=== PATIENT | male | born 1940 | race Caucasian/White ===

== ENCOUNTER 2016-11-25 19:01 | Observation (INO) ==
--- NOTE | 2016-11-25 19:41 | Emergency Department Note ---
Disposition Clinical Impression: Inability to ambulate due to knee, Strain of left knee Disposition: Admitted As Inpatient Condition: Good Referrals: NONE,PCP [Primary Care Provider] - Forms: ED Satisfaction Letter Time of Disposition: 19:58 Extremity Problem HPI - General Chief complaint: ED Extremity Problem,Nontraumatic Stated complaint: Left knee pain Time Seen by Provider: 11/25/16 19:26 Source: patient, family Limitations: no limitations Nursing Notes Reviewed: Yes Vital Signs Reviewed: Yes - History of Present Illness HPI Narrative: 76-year-old male presents emergency room for left knee pain. Patient states he was getting up out of the recliner today and had severe pain noted in the left knee. He denies any fall or direct trauma. No fevers or chills. No new swelling. States it was fine earlier today. He has a history of chronic right knee pain. He states he wanted to have surgery on the right knee but was unintended unable to due to his other medical problems. His left leg was his good leg which helped some transfer his weight from the bed to his motorized wheelchair at home. He he uses his wheelchair to get around the house. He states he uses his left leg dependent but now is unable to do so due to the pain and weakness of the left knee. He is unable to take care of himself and his is unable to hold him up due to his weight. Pain Scale: 0 - Related Data Allergies Allergy/AdvReac Type Severity Reaction Status Date / Time No Known Allergies Allergy Verified 11/25/16 19:13 Review of Systems: Gen.: No fevers or chills or new weakness Eyes: Denies double vision or any vision changes Ears: Denies any otalgia Pharynx: Denies sore throat CV: Denies chest pain. Denies palpitations Respiratory: Denies any cough or sputum production. No shortness of breath. GI: Denies any nausea, vomiting, diarrhea, constipation. Denies abdominal pain Neuro: Denies any headache. No problems with ambulation. No numbness. Skin: Denies any rashes or abrasions Psych: Denies any depression or suicidal or homicidal ideation Musculoskeletal: Denies any arthralgias or myalgias Past Medical History - Past Medical History Medical history: Reports: CHF, DVT, diabetes, hyperlipidemia, hypertension, kidney stones - Social History Smoking Status: Never smoker Alcohol use: Reports: none Drug use: Reports: none Physical Exam - General Limitations: no limitations, other (Obese male) General appearance: in no apparent distress - Head Head exam: atraumatic, normocephalic - ENT ENT exam: normal exam - Neck Neck exam: Present: normal inspection - Chest Chest inspection: Present: normal inspection - Respiratory Respiratory exam: Present: normal lung sounds bilaterally - Cardiovascular Cardiovascular exam: Present: regular rate, normal rhythm - Abdominal Exam Abdominal exam: Present: soft, Non-Tender, normal bowel sounds - Expanded Lower Extremity Exam Knee exam: Present: tenderness (Patient has diffuse tenderness of the left knee. No significant swelling as compared to the right. No redness. No bruising. No ecchymosis. Pain on passive range of motion of the left knee. Intact patellar and quadriceps tendon.) - Back Exam Back exam: Present: normal inspection - Neurological Exam Neurological exam: Present: alert, oriented X3 - Psychiatric Psychiatric exam: Present: normal affect, normal mood - Skin Skin exam: Present: warm, dry, intact Course Course Narrative: Knee films of the left knee show [id number] with significant degenerative joint disease. We will check some screening labs. Patient will need to be admitted due to the inability to pivots or bear weight on the left leg. Consult orthopedics tomorrow. Vital Signs Temperature 97.8 F 11/25/16 19:11 Pulse Rate 68 11/25/16 19:11 Respiratory Rate 20 11/25/16 19:11 Blood Pressure 148/89 11/25/16 19:11 O2 Sat by Pulse Oximetry 95 11/25/16 19:11 Temperature 97.8 F 11/25/16 19:17 Pulse Rate 68 11/25/16 19:17 Respiratory Rate 20 11/25/16 19:17 Blood Pressure 148/89 11/25/16 19:17 O2 Sat by Pulse Oximetry 95 11/25/16 19:17 Oxygen Delivery Oxygen Delivery Room Air Extremity Problem, Nontraumati - Medical Records Medical records reviewed: Yes I reviewed the patient's medical records. - Radiology Data Radiology results reviewed: Yes I reviewed the patient's radiology results.
[2016-11-25 19:58] LABS: Basophils % 0.4 %; Eosinophils # 1.6 K/mcL (0.0-0.6); Eosinophils % 14.9 %; Hematocrit 38.6 % (37.5-50.1); Hemoglobin 12.7 g/dL (12.9-16.9); Immature Granulocytes % 0.5 % (0-4); Lymphocytes # 2.5 K/mcL (0.6-4.6); Lymphocytes % 23.7 %; Mean Corpuscular HGB Conc 32.9 g/dL (31.6-35.5); Mean Corpuscular Hemoglobin 30.5 pg (28.0-33.3); Mean Corpuscular Volume 92.6 fL (83.0-100.0); Mean Platelet Volume 11.8 fL (9.4-12.4); Monocytes # 0.9 K/mcL (0.0-1.3); Monocytes % 8.4 %; Neutrophils # 5.5 K/mcL (1.6-8.9); Platelet Count 140 K/mcL (140-400); Red Blood Count 4.17 M/mcL (4.19-5.50); Red Cell Distribution Width 14.6 % (11.5-14.5); Segmented Neutrophils % 52.1 %
[2016-11-25 20:11] LABS: BUN/Creatinine Ratio 21 (6-26); Blood Urea Nitrogen 24 mg/dL (8-26); Calcium 9.4 mg/dL (8.6-10.8); Carbon Dioxide 30 mEq/L (19-29); Chloride 102 mEq/L (98-109); Glucose 113 mg/dL (70-99); Osmolality,Calculated 295 (280-300); Potassium 4.4 mEq/L (3.5-4.5); Sodium 140 mEq/L (136-145); eGFR For African Americans > 60 (> 60); eGFR For Non-African Americans > 60 (> 60)
[2016-11-25] MEDS ORDERED: *HR* Morphine 2 MG/ML SYRINGE IVP PRN (20:58)
[2016-11-25] MEDS ORDERED: Naloxone 0.4 MG/ML INJ IVP PRN (20:58)
[2016-11-25] MEDS ORDERED: Ondansetron 4 MG/2 ML VIAL IVP PRN (20:58)
[2016-11-25] MEDS ORDERED: Fluticasone Propionate Nasal 50 MCG/SPRAY BOTTLE NS PRN (21:03)
[2016-11-25] MEDS ORDERED: *HR* Dextrose 50 % in Water (Syg) 50 ML SYRINGE IVP PRN (21:08)
[2016-11-25] MEDS ORDERED: Dextrose Gel 15 GM PO PRN ×2 (21:08)
[2016-11-25] MEDS ORDERED: D5% in Water 1,000 ML IVC PRN (21:08)
--- NOTE | 2016-11-25 21:18 | Internal Med History&Physical ---
<Willian Catherine - Last Filed: 11/25/16 21:56> Date of Encounter: 11/25/16 Time of Encounter: 20:15 Assessment and Plan (1) Inability to ambulate due to multiple joints Current visit: Yes Status: Acute Patient presents with current functional paraplegia related to inability to ambulate due to bilateral knee degenerative changes. 2-View XR of the left knee today shows severe degenerative changes about the medial compartment and patellofemoral space with marginal osteophytes. Moderate degeneration lateral compartment. No fracture or effusion. IVP morphine ordered 2 mg Q4. Orthopedic surgery consult ordered to assess patient for surgical candidacy and/or local injections. Patient to be placed as falls precautions/up with assist/bed rest with bedside commode with assist only due to inability to ambulate. PT and OT consults ordered to assess patient's functional status. SW consult ordered to assess for possible post-discharge placement for rehabilitation services. (2) Acute pain of both knees Current visit: Yes Status: Acute Patient presents with acute on chronic bilateral knee pain related to severe degenerative changes. IVP morphine ordered 2 mg Q4. Orthopedic surgery consult ordered to assess patient for surgical candidacy and/or local injections. Patient to be placed as falls precautions/up with assist/bed rest with bedside commode with assist only due to inability to ambulate. PT and OT consults ordered to assess patient's functional status. SW consult ordered to assess for possible post-discharge placement for rehabilitation services. (3) CHF (congestive heart failure) Current visit: Yes Status: Chronic Patient presents with chronic CHF. Patient currently has mild bilateral pitting edema of 1+ but lungs are clear. Patient denies SOB or orthopnea. Will continue patient's hydrochlorothiazide PO and place patient on supplemental O2 with SpO2 monitoring. Diabetic diet with fluid restriction diet of 1.5L daily. Patient placed on continuous telemetry. Will monitor patient for signs of respiratory and/or cardiac distress. Qualifiers: Congestive heart failure type: unspecified congestive heart failure type Congestive heart failure chronicity: chronic Qualified Code(s): I50.9 - Heart failure, unspecified (4) Diabetes Current visit: Yes Status: Chronic Patient presents with history of chronic diabetes controlled with Lantus and oral metformin. Will hold patient's metformin and continue patient's Lantus 70 units HS and add low-dose correction insulin with hypoglycemia protocol. A1c ordered with a.m.labs. Blood glucose checks ACHS. Qualifiers: Diabetes mellitus type: type 2 Diabetes mellitus complication status: without complication Diabetes mellitus terminal gauger insulin use: with terminal gauger use Qualified Code(s): E11.9 - Type 2 diabetes mellitus without complications ; Z79.4 - rat exterminator (current) use of insulin (5) HLD (hyperlipidemia) Current visit: Yes Status: Chronic Patient presents with history of chronic hyperlipidemia. Lipid panel ordered and will continue patient's simvastatin. Qualifiers: Hyperlipidemia type: pure hypercholesterolemia Qualified Code(s): E78.00 - Pure hypercholesterolemia, unspecified; E78.0 - Pure hypercholesterolemia (6) HTN (hypertension) Current visit: Yes Status: Chronic Patient presents with history of chronic hypertension. Will monitor patient vital signs and continue patient's Norvasc, Cozaar, and metoprolol. Qualifiers: Hypertension type: essential hypertension Qualified Code(s): I10 - Essential (primary) hypertension (7) DVT prophylaxis Current visit: Yes Status: Acute Patient is to be placed on DVT prophylaxis due to current admission protocol and bed rest status. Patient is currently anticoagulated with Coumadin so will continue with pharmacy dosing. Internal Medicine - H&P: HPI Chief complaint: LE Weakness/Pain and Unable to Ambulate Admitted From: Emergency Dept Plans for Post Hospital Care: Home History of present illness: Mr. Ocampo is a 76 year old male presents to ED with chief complaint of left knee pain and inability to ambulate. Patient has history of chronic right knee pain and relies on left knee. In order to get on his wheelchair. Patient attempted to get out of his recliner today and experienced severe left knee pain. Denies any fall or trauma. Patient is unable to ambulate at the present time and his is unable to support his weight to assist him. Patient's current BMI is 47.3 and he is unable to support his weight. Patient experiences pain with passive ROM of left knee. Mr. Ocampo has a medical history that includes congestive heart failure, PE years ago, diabetes controlled with Lantus and metformin, hyperlipidemia, hypertension, and kidney stones. Patient reports he has never smoked. Patient states his diabetes is under control and reports his blood glucose checks range between 80-95. He states he is currently compliant with all of his medications. Mr. Ocampo is experiencing functional paraplegia based on his current inability to walk or support his weight and he is at moderate risk for further morbidity and will be placed as inpatient status with consults to orthopedic surgery to assess patient for surgical candidacy and/or local injections. PT, OT, and SW consults ordered to assess patient's functional status and recommend possible placement for rehabilitation service post-discharge. Falls/safety precautions ordered. Due to patient's current CHF and pedal edema, he will be placed on supplemental O2 and SpO2 monitoring, cardiac telemetry, and we will continue his hydrochlorothiazide PO. IV morphine for pain management. Time spent with patient and family > 40 minutes. Past Med Surg Social Fam HX - Past Medical History Medical history: CHF, DVT, diabetes, hyperlipidemia, hypertension, kidney stones - Social History Smoking Status: Never smoker Alcohol use: none Drug use: none Internal Medicine - H&P: Meds Aspirin Enteric Coated [Aspirin EC] 81 mg PO DAILY 11/25/16 [History] BuPROPion SR (12 HR) [Wellbutrin SR] 150 mg PO DAILY 11/25/16 [History] Calcium Carbonate/Vitamin D3 [Calcium 500-Vit D3 200 Tablet] 1 each PO BID 11/25 [History] Docusate [Colace] 100 mg PO BID 11/25/16 [History] Fluticasone Propionate Nasal [Flonase] 50 mcg NS DAILY PRN 11/25/16 [History] Gabapentin [Neurontin] 100 mg PO TID 11/25/16 [History] Insulin Glargine [Lantus] 70 unit SQ HS 11/25/16 [History] Losartan Potassium [Cozaar] 100 mg PO DAILY 11/25/16 [History] Metformin HCl [Glucophage] 1,000 mg PO DAILY 11/25/16 [History] Metoprolol XL (24 HR) Succ [Toprol XL] 25 mg PO DAILY 11/25/16 [History] Multivit-Min/FA/Lycopen/Lutein [Centrum Silver Tablet] 1 each PO DAILY 11/25/16 [History] Omeprazole [PriLOSEC] 20 mg PO Q48H 11/25/16 [History] Simvastatin [Zocor] 20 mg PO HS 11/25/16 [History] Trospium Chloride 20 mg PO HS 11/25/16 [History] Warfarin [Coumadin] 7.5 mg PO SUTUWEFRSA 11/25/16 [History] Warfarin [Coumadin] 10 mg PO MOTH 11/25/16 [History] amLODIPine [Norvasc] 5 mg PO DAILY 11/25/16 [History] hydroCHLOROthiazide [Hydrochlorothiazide] 25 mg PO DAILY 11/25/16 [History] Allergies No Known Allergies Allergy (Verified 11/25/16 19:13) All Systems PM: A 10-system review of systems was performed and is negative for pertinent findings except as documented above in the HPI. - Constitutional Vitals: Temp Pulse Resp BP Pulse Ox 97.8 F 68 0 0/0 95 11/25/16 19:17 11/25/16 19:17 11/25/16 20:16 11/25/16 20:16 11/25/16 19:17 Internal Med - H&P Results - Labs CBC & Chem 7: 11/25/16 19:52 11/25/16 19:52 <Juliana Morin - Last Filed: 11/25/16 22:01> Date of Encounter: 11/25/16 Internal Medicine - H&P: HPI History of present illness: Mr. Ocampo is a 76 year old male All Systems PM: A 10-system review of systems was performed and is negative for pertinent findings except as documented above in the HPI. - Constitutional Vitals: Temp Pulse Resp BP Pulse Ox 97.8 F 68 0 0/0 95 11/25/16 19:17 11/25/16 19:17 11/25/16 20:16 11/25/16 20:16 11/25/16 19:17 Internal Med - H&P Results - Labs CBC & Chem 7: 11/25/16 19:52 11/25/16 19:52 - Attending Attestation I have personally performed a face to face evaluation on this patient. I have reviewed and agree with the care plan. History and Exam by me shows: Martin Ocampo Mr. Ocampo is a patient with severe right knee osteoarthritis and at baseline uses a motorized wheelchair and relies on his left leg to prevent. Of note he is on Coumadin for history of VT E's, DVTs PEs. Suspect that he has been overcompensating his chronic right knee pain with increased increased stress to his left knee causing acute exacerbation of arthritic pain. He presents to the hospital for acute on chronic pain control and functional paraplegia unable to ambulate and self-care. In regards to his osteoarthritis he has been seen by orthopedics previously and is treated nonoperatively due to high risk for surgery is given comorbidities. ROS 14 point review of systems reviewed as best as possible given presentation. Pertinent positive or negative as per HPI or otherwise reviewed as negative General - AAO x 3. Morbid obesity Psych - Appropriate affect/speech. No agitation Eyes - BARBARA. Eye lids intact. No scleral icterus ENT - Oral mucosa pink, dentition intact. External ear clear/dry/intact. No thyromegaly Lymphatics - No cervical/inguinal lympadenopathy Neuro - No gross peripheral or central neuro deficits with intact CN 2-12 exam Heart - Sinus. RRR. S1 and S2 present. No added HS/murmurs appreciated. No elevated JVD appreciated. No calf swellings/erythema Lung - Adequate air entry b/l, No crackes/wheezes appreciated GI - Soft, non-tender. No hepatosplenomegaly/ascities. BS+ - No CVA/suprapubic tenderness or palpable bladder distension Skin - Intact. No rash/petechiae/ecchymosis. Warm extremities MSK -swelling in bilateral knee joint. No gross effusion noted Assessment and plan #1 functional paraplegia - Consult orthopedic Evaluation for possible local knee joint injection - PT evaluation for placement Chronic medical issues: Hypertension Depression DVTs on Coumadin Please type 2 insulin-dependent
[2016-11-25] MEDS ORDERED: *HR* Warfarin 7.5 MG TABLET PO ONE (21:45)
[2016-11-25 22:12] LABS: INR 1.5; Prothrombin Time 16.7 Seconds (9.4-12.1)
[2016-11-26] MEDS ORDERED: *HR* Heparin 5,000 UNIT/ML VIAL SQ SCH
[2016-11-26] MEDS ORDERED: Acetaminophen 325 MG TABLET PO PRN (01:40)
[2016-11-26 04:51] LABS: Basophils # 0.1 K/mcL (0.0-0.2); Basophils % 0.5 %; Eosinophils # 1.8 K/mcL (0.0-0.6); Eosinophils % 17.7 %; Hematocrit 37.8 % (37.5-50.1); Hemoglobin 12.3 g/dL (12.9-16.9); Immature Granulocytes % 0.6 % (0-4); Lymphocytes # 2.4 K/mcL (0.6-4.6); Lymphocytes % 23.5 %; Mean Corpuscular HGB Conc 32.5 g/dL (31.6-35.5); Mean Corpuscular Hemoglobin 30.2 pg (28.0-33.3); Mean Corpuscular Volume 92.9 fL (83.0-100.0); Monocytes # 0.8 K/mcL (0.0-1.3); Monocytes % 7.6 %; Platelet Count 140 K/mcL (140-400); Red Blood Count 4.07 M/mcL (4.19-5.50); Red Cell Distribution Width 14.5 % (11.5-14.5); Segmented Neutrophils % 50.1 %
[2016-11-26 05:19] LABS: BUN/Creatinine Ratio 21 (6-26); Blood Urea Nitrogen 24 mg/dL (8-26); Calcium 9.4 mg/dL (8.6-10.8); Carbon Dioxide 31 mEq/L (19-29); Chloride 102 mEq/L (98-109); Chol/HDL Ratio 3.4 (0-4.9); Cholesterol 102 mg/dL (< 200); Glucose 139 mg/dL (70-99); HDL Cholesterol 30 mg/dL (40-59); LDL Cholesterol,Calculated 49 mg/dL (0-99); Osmolality,Calculated 298 (280-300); Potassium 3.9 mEq/L (3.5-4.5); Sodium 141 mEq/L (136-145); Triglycerides 114 mg/dL (< 150); eGFR For African Americans > 60 (> 60); eGFR For Non-African Americans > 60 (> 60)
[2016-11-26 05:36] LABS: INR 1.6; Prothrombin Time 17.2 Seconds (9.4-12.1)
[2016-11-26 05:49] LABS: Hemoglobin A1C 6.5 %
[2016-11-26] MEDS ORDERED: Cholecalciferol (D-3) 1,000 UNIT TABLET PO SCH (09:00)
[2016-11-26] MEDS ORDERED: BuPROPion SR (12 HR) 150 MG TABLET PO SCH (09:00)
[2016-11-26] MEDS ORDERED: Aspirin Enteric Coated 81 MG Tablet PO SCH (09:00)
[2016-11-26] MEDS ORDERED: amLODIPine 5 MG TABLET PO SCH (09:00)
[2016-11-26] MEDS ORDERED: hydroCHLOROthiazide 25 MG TABLET PO SCH (09:00)
[2016-11-26] MEDS ORDERED: Metoprolol XL (24 HR) Succ 25 MG TAB.ER.24H PO SCH (09:00)
[2016-11-26] MEDS ORDERED: Pantoprazole 40 MG VIAL IVP SCH (09:00)
[2016-11-26] MEDS ORDERED: NON-FORMULARY MEDICATION 1 EACH EACH (Calcium Carbonate/Vitamin D3 [Calcium 500-Vit D3 200 PO SCH (09:00)
[2016-11-26] MEDS: Gabapentin 100 MG CAPSULE PO SCH ×2 (09:50→16:13)
[2016-11-26] MEDS: Insulin LISPRO 300 UNITS/3 ML VIAL SQ SCH ×2 (10:13→13:11)
[2016-11-26 11:52] VITALS: BP 137/76
--- NOTE | 2016-11-26 15:36 | Discharge Summary ---
Date of Encounter: 11/26/16 Time of Encounter: 15:31 - Discharge Diagnosis (1) Osteoarthritis Priority: Primary Status: Chronic Qualifiers: Osteoarthritis location: knee Osteoarthritis type: primary Laterality: bilateral Qualified Code(s): M17.0 - Bilateral primary osteoarthritis of knee (2) Strain of left knee Priority: Primary Status: Acute Qualifiers: Encounter type: initial encounter Qualified Code(s): S86.912A - Strain of unspecified muscle(s) and tendon(s) at lower leg level, left leg, initial encounter (3) VTE (venous thromboembolism) Priority: Secondary Status: Chronic (4) CHF (congestive heart failure) Priority: Secondary Status: Chronic Qualifiers: Congestive heart failure type: combined Congestive heart failure chronicity : chronic Qualified Code(s): I50.42 - Chronic combined systolic (congestive) and diastolic (congestive) heart failure (5) Diabetes Priority: Secondary Status: Chronic Qualifiers: Diabetes mellitus type: type 2 Diabetes mellitus complication status: with unspecified complications Diabetes mellitus long-term insulin use: with long-term use Qualified Code(s): E11.8 - Type 2 diabetes mellitus with unspecified complications; Z79.4 - manager terminal (current) use of insulin (6) HLD (hyperlipidemia) Priority: Secondary Status: Chronic Qualifiers: Hyperlipidemia type: unspecified Qualified Code(s): E78.5 - Hyperlipidemia , unspecified (7) HTN (hypertension) Priority: Secondary Status: Chronic Qualifiers: Hypertension type: essential hypertension Qualified Code(s): I10 - Essential (primary) hypertension - Discharge Medications Prescriptions: Ibuprofen 400 mg PO Q8H PRN #30 tablet PRN Reason: Pain>5 Home Medications: Aspirin Enteric Coated [Aspirin EC] 81 mg PO DAILY 11/25/16 [History] BuPROPion SR (12 HR) [Wellbutrin SR] 150 mg PO DAILY 11/25/16 [History] Calcium Carbonate/Vitamin D3 [Calcium 500-Vit D3 200 Tablet] 1 each PO BID 11/25 [History] Docusate [Colace] 100 mg PO BID 11/25/16 [History] Fluticasone Propionate Nasal [Flonase] 50 mcg NS DAILY PRN 11/25/16 [History] Gabapentin [Neurontin] 100 mg PO TID 11/25/16 [History] Insulin Glargine [Lantus] 70 unit SQ HS 11/25/16 [History] Losartan Potassium [Cozaar] 100 mg PO DAILY 11/25/16 [History] Metformin HCl [Glucophage] 1,000 mg PO DAILY 11/25/16 [History] Metoprolol XL (24 HR) Succ [Toprol Xl] 25 mg PO DAILY 11/25/16 [History] Multivit-Min/FA/Lycopen/Lutein [Centrum Silver Tablet] 1 each PO DAILY 11/25/16 [History] Omeprazole [PriLOSEC] 20 mg PO Q48H 11/25/16 [History] Simvastatin [Zocor] 20 mg PO HS 11/25/16 [History] Trospium Chloride 20 mg PO HS 11/25/16 [History] Warfarin [Coumadin] 7.5 mg PO SUTUWEFRSA 11/25/16 [History] Warfarin [Coumadin] 10 mg PO MOTH 11/25/16 [History] amLODIPine [Norvasc] 5 mg PO DAILY 11/25/16 [History] hydroCHLOROthiazide [Hydrochlorothiazide] 25 mg PO DAILY 11/25/16 [History] Acetaminophen [Tylenol] 650 mg PO Q6HR PRN tab 11/26/16 [Rx] Ibuprofen 400 mg PO Q8H PRN #30 tablet 11/26/16 [Rx] Allergies/Adverse Reactions: Allergies No Known Allergies Allergy (Verified 11/25/16 19:13) Date of admission: 11/25/16 20:58 Primary care physician: Yobany Larios Consults: 11/25/16 21:05 Consult to Orthopedic Surgery [CONS] Routine Consulting Provider: [facility] Reason for Consult: Patient has bilateral degenerative process in the knees causing him to be unable to ambulate. High risk for falls. Assess for local injections bilaterally Call Completed: No Discharging clinician: Nadia Edwards Anticipated date of discharge: 11/26/16 - Patient Status Disposition: Home, Self-Care Condition: Good Functional capacity at discharge: uses cane/walker Overall status at discharge: patient is progressing back to baseline - Discharge Instructions Follow Up With: N/A [Outside] - 11/30/16 10:45 am (This is a scheduled appointment with the coumadin clinic located in [place]) Jairon Martinez MD [Partnered Physician] - 12/01/16 7:40 am (This appointment is located at the [facility] in [place].) April Coburn, DO [Primary Care Provider] - 12/04/16 9:30 am Additional Instructions: F/up with [facility]- Orthopedics in 1-2 weeks - Diet and Activity Activity: as per physical therapy Diet: diabetic diet, low fat, low cholesterol, low salt diet Hospital course: Mr. Ocampo is a 76 year old male with history of bilateral knee osteoarthritis and multiple medical problems, presented with complaints of acute left knee pain. Patient has had chronic pain and issues with right knee and probably overuses left knee for ambulation, with the help of a walker. He was admitted with left knee and leg pain after straining his left knee. Left knee x-ray showed significant degenerative arthritis. Case was discussed with orthopedic surgery , who recommended outpatient follow-up to discuss treatment options like intra-articular steroid injections, medical pain control versus knee replacement. Patient has not required IV pain medications during hospitalization. Physical and occupational therapy evaluation was done and recommended home health services. Patient does have multiple medical problems, all of which are currently stable. Discussed with patient, his family members along with dialysis social worker and at this time, patient is determined stable to return home and a referral for home health services has been completed. - Time Spent with Patient Total time spent providing and/or coordinating discharge services: Greater than 30 minutes (40 min) - Constitutional Vitals: Temp Pulse Resp BP Pulse Ox 97.8 F 70 17 137/76 95 11/26/16 11:51 11/26/16 11:51 11/26/16 11:51 11/26/16 11:51 11/26/16 11:51 General appearance: Present: A&O X 3, morbidly obese, answers questions appropriately - Respiratory Respiratory exam: Present: CTAB. Absent: accessory muscle use, rales, rhonchi, wheezes
--- NOTE | 2016-11-26 15:38 | Physician Discharge Referral ---
Home Health/Hosp Referral Info Transfer to: Home Health Attending Provider: Nadia Edwards Provider in Charge Post Discharge: PCP - Diagnosis (1) Osteoarthritis Priority: Primary Status: Chronic (2) Strain of left knee Priority: Primary Status: Acute (3) VTE (venous thromboembolism) Priority: Secondary Status: Chronic (4) CHF (congestive heart failure) Priority: Secondary Status: Chronic (5) Diabetes Priority: Secondary Status: Chronic (6) HLD (hyperlipidemia) Priority: Secondary Status: Chronic (7) HTN (hypertension) Priority: Secondary Status: Chronic - Respiratory Orders Smoking Cessation: Smoking cessation has been advised. For more information, call the [place] Tobacco Quit Line at 6-385-WAKL-NOW. - Diet/Nutrition Diet/Nutrition Orders: Cardiac, No Concentrated Sweets (diabetic) - Activity Activity Orders: Ambulate - Services Needed Following services are medically necessary services: Nursing, Physical Therapy, Occupational Therapy - Transfer Medications Prescriptions: Ibuprofen 400 mg PO Q8H PRN #30 tablet PRN Reason: Pain>5 Home Medications: Aspirin Enteric Coated [Aspirin EC] 81 mg PO DAILY 11/25/16 [History] BuPROPion SR (12 HR) [Wellbutrin SR] 150 mg PO DAILY 11/25/16 [History] Calcium Carbonate/Vitamin D3 [Calcium 500-Vit D3 200 Tablet] 1 each PO BID 11/25 [History] Docusate [Colace] 100 mg PO BID 11/25/16 [History] Fluticasone Propionate Nasal [Flonase] 50 mcg NS DAILY PRN 11/25/16 [History] Gabapentin [Neurontin] 100 mg PO TID 11/25/16 [History] Insulin Glargine [Lantus] 70 unit SQ HS 11/25/16 [History] Losartan Potassium [Cozaar] 100 mg PO DAILY 11/25/16 [History] Metformin HCl [Glucophage] 1,000 mg PO DAILY 11/25/16 [History] Metoprolol XL (24 HR) Succ [Toprol Xl] 25 mg PO DAILY 11/25/16 [History] Multivit-Min/FA/Lycopen/Lutein [Centrum Silver Tablet] 1 each PO DAILY 11/25/16 [History] Omeprazole [PriLOSEC] 20 mg PO Q48H 11/25/16 [History] Simvastatin [Zocor] 20 mg PO HS 11/25/16 [History] Trospium Chloride 20 mg PO HS 11/25/16 [History] Warfarin [Coumadin] 7.5 mg PO SUTUWEFRSA 11/25/16 [History] Warfarin [Coumadin] 10 mg PO MOTH 11/25/16 [History] amLODIPine [Norvasc] 5 mg PO DAILY 11/25/16 [History] hydroCHLOROthiazide [Hydrochlorothiazide] 25 mg PO DAILY 11/25/16 [History] Acetaminophen [Tylenol] 650 mg PO Q6HR PRN tab 11/26/16 [Rx] Ibuprofen 400 mg PO Q8H PRN #30 tablet 11/26/16 [Rx] Allergies/Adverse Reactions: Allergies No Known Allergies Allergy (Verified 11/25/16 19:13) Certification: Further, I certify that my clinical findings support that this patient is homebound (i.e. absences from home require considerable and taxing effort and are for medical reasons or gnosticist services or infrequently or short duration when for other reasons) because: Homebound Reason: Patient requires assistance of a person or device to safely leave home, Leaving home requires considerable and taxing effort due to condition Attestation: My signature below is to certify that this patient is under my care and that I, or nurse practitioner, or a physician's assistant hvac mechanic working with me, has a face-to -face encounter with this patient.
[2016-11-26] MEDS ORDERED: Warfarin perPT PO PRN (18:00)
[2016-11-26] MEDS ORDERED: *HR* Warfarin 7.5 MG TABLET PO ONE (18:00)
[2016-11-26] MEDS ORDERED: Insulin DETEMIR 100 UNIT/ML X5UNITS SQ SCH (21:00)
[2016-11-26] MEDS ORDERED: Insulin LISPRO 300 UNITS/3 ML VIAL SQ SCH (21:00)
--- NOTE | 2016-11-27 14:53 | Electrocardiograph Report ---
[address] [place] [address] Test Date: 2016-11-26 Pat Name: Martin Ocampo Department: 113 Room: 3B Gender: M Sr. Consultant: KIM : 1940 Requested By: Nadia Edwards Order Number: [id number] Reading MD: Gabbie Peters Measurements Intervals [place] Rate: 67 P: -34 ND: 63 QRS: -84 QRSD: 136 T: 51 QT: 412 QTc: 428 Interpretive Statements SINUS RHYTHM WITH SINUS ARRHYTHMIA WITH SHORT ND INTERVAL RIGHT BUNDLE BRANCH BLOCK INFERIOR MYOCARDIAL INFARCTION, PROBABLY OLD ANTEROSEPTAL MYOCARDIAL INFARCTION, OF INDETERMINATE AGE Electronically Signed On 11-27-2016 14:51:16 EDT by Gabbie Peters
== END 2016-11-26 17:00 | disposition home health service (06) ==
LOC: 3BNU 19:01 → EMEROO 19:01 → SUATTDRO 20:58 → 3BNU 21:28
PROVIDERS: ADMIT Internal Medicine; ATTEND Internal Medicine

== ENCOUNTER 2017-08-30 12:56 | Observation (INO) ==
[2017-08-30 14:45] LABS: Basophils # 0.1 K/mcL (0.0-0.2); Basophils % 0.7 %; Eosinophils # 1.3 K/mcL (0.0-0.6); Hematocrit 38.2 % (37.5-50.1); Hemoglobin 12.4 g/dL (12.9-16.9); Immature Granulocytes % 0.6 % (0-4); Lymphocytes # 1.7 K/mcL (0.6-4.6); Lymphocytes % 20.4 %; Mean Corpuscular HGB Conc 32.5 g/dL (31.6-35.5); Mean Corpuscular Hemoglobin 29.7 pg (28.0-33.3); Mean Corpuscular Volume 91.6 fL (83.0-100.0); Mean Platelet Volume 12.3 fL (9.4-12.4); Monocytes # 0.6 K/mcL (0.0-1.3); Monocytes % 7.7 %; Neutrophils # 4.6 K/mcL (1.6-8.9); Platelet Count 142 K/mcL (140-400); Red Blood Count 4.17 M/mcL (4.19-5.50); Red Cell Distribution Width 14.6 % (11.5-14.5); Segmented Neutrophils % 54.6 %
[2017-08-30 14:53] LABS: INR 2.5; Prothrombin Time 27.3 Seconds (9.4-12.1)
[2017-08-30 15:06] LABS: Troponin I < 0.03 ng/mL (< 0.04)
--- NOTE | 2017-08-30 15:20 | Emergency Department Note ---
Disposition Clinical Impression: Near syncope Disposition: Admitted As Inpatient Condition: Fair Forms: ED Satisfaction Letter Time of Disposition: 17:02 Dizziness HPI - General Chief Complaint: ED Dizziness Stated Complaint: weakness, Dizzy Time Seen by Provider: 08/30/17 13:39 Source: patient, family Limitations: no limitations Nursing Notes Reviewed: Yes Vital Signs Reviewed: Yes - History of Present Illness HPI Narrative: 77-year-old male who comes in today with episodes of dizziness and near syncope. Patient states he has had episodes beginning about 3 weeks ago and he seemed to be getting worse. Pt Subjective Complaint: dizziness Onset (ago): week(s) Timing: sudden onset (3) Description: "room spinning", difficulty walking History of similar episodes: Yes History of trauma: No Severity: moderate Improves with: nothing Worsens with: nothing Associated symptoms: Reports: other (General weakness) - Related Data Home Medications Medication Instructions Recorded Confirmed Aspirin Enteric Coated [Aspirin EC] 81 mg PO DAILY 11/25/16 11/25/16 BuPROPion SR (12 HR) [Wellbutrin 150 mg PO DAILY 11/25/16 11/25/16 SR] Calcium Carbonate/Vitamin D3 1 each PO BID 11/25/16 11/25/16 [Calcium 500-Vit D3 200 Tablet] Docusate [Colace] 100 mg PO BID 11/25/16 11/25/16 Fluticasone Propionate Nasal 50 mcg NS DAILY PRN 11/25/16 11/25/16 [Flonase] Gabapentin [Neurontin] 100 mg PO TID 11/25/16 11/25/16 Insulin Glargine [Lantus] 70 unit SQ HS 11/25/16 11/25/16 Losartan Potassium [Cozaar] 100 mg PO DAILY 11/25/16 11/25/16 Metformin HCl [Glucophage] 1,000 mg PO DAILY 11/25/16 11/25/16 Metoprolol XL (24 HR) Succ [Toprol 25 mg PO DAILY 11/25/16 11/25/16 Xl] Multivit-Min/FA/Lycopen/Lutein 1 each PO DAILY 11/25/16 11/25/16 [Centrum Silver Tablet] Omeprazole [PriLOSEC] 20 mg PO Q48H 11/25/16 11/25/16 Simvastatin [Zocor] 20 mg PO HS 11/25/16 11/25/16 Trospium Chloride 20 mg PO HS 11/25/16 11/25/16 Warfarin [Coumadin] 7.5 mg PO SUTUWEFRSA 11/25/16 11/25/16 Warfarin [Coumadin] 10 mg PO MOTH 11/25/16 11/25/16 amLODIPine [Norvasc] 5 mg PO DAILY 11/25/16 11/25/16 hydroCHLOROthiazide 25 mg PO DAILY 11/25/16 11/25/16 [Hydrochlorothiazide] Previous Rx's Medication Instructions Recorded Acetaminophen [Tylenol] 650 mg PO Q6HR PRN tab 11/26/16 Ibuprofen 400 mg PO Q8H PRN #30 tablet 11/26/16 HYDROcodone/Acet 5/325 mg [[place] 1 tab PO Q4H PRN #14 tab 04/25/17 5-325 mg] Ondansetron ODT [Zofran ODT] 4 mg SL Q8HR PRN #12 tab.rapdis 04/30/17 Allergies Allergy/AdvReac Type Severity Reaction Status Date / Time No Known Allergies Allergy Verified 04/30/17 16:37 All systems ED: reviewed and negative except as stated. Constitutional: Denies: fever, chills, weakness, weight change Eyes: Denies: eye pain, eye discharge, vision change ENT ED: Denies: ear pain, throat pain, dental pain, hearing loss, epistaxis, congestion, dysphagia Cardiovascular: Reports: syncope (Near). Denies: chest pain, palpitations, dyspnea on exertion, edema Respiratory: Reports: other (Dizziness). Denies: cough, dyspnea, wheezes, hemoptysis, stridor Gastrointestinal: Denies: abdominal pain, nausea, vomiting, diarrhea, constipation, hematemesis, melena, hematochezia Genitourinary: Denies: urgency, dysuria, frequency, hematuria Musculoskeletal: Denies: back pain, neck pain, arthralgia, myalgia Integumentary: Denies: rash, abrasion, lesions Neurological: Denies: headache, weakness, numbness, paresthesias, confusion, abnormal gait, vertigo Psychiatric: Denies: anxiety, depression, suicidal thoughts, homicidal thoughts , auditory hallucinations, visual hallucinations Endocrine: Denies: fatigue Hematological/Lymphatic: Denies: easy bleeding, easy bruising Allergic/Immunologic: Denies: facial swelling, urticaria Past Medical History - Past Medical History Medical history: Reports: CHF, DVT, diabetes, hyperlipidemia, hypertension, kidney stones Surgical history: Reports: appendectomy Psychiatric history: Reports: no psych history - Social History Smoking Status: Former smoker Smokeless Tobacco Status: No Alcohol use: Reports: none Drug use: Reports: none Physical Exam - General Limitations: no limitations General appearance: alert, in no apparent distress - Head Head exam: atraumatic, normocephalic, normal inspection - Eye Eye exam: Present: normal appearance, PERRL, EOMI - ENT ENT exam: normal exam, normal oropharynx, mucous membranes moist - Neck Neck exam: Present: normal inspection, full ROM, trachea midline - Chest Chest inspection: Present: normal inspection, symmetric chest wall rise - Respiratory Respiratory exam: Present: normal lung sounds bilaterally - Cardiovascular Cardiovascular exam: Present: regular rate, normal rhythm, normal heart sounds - Abdominal Exam Abdominal exam: Present: soft, Non-Tender. Absent: tenderness, distention, guarding, rebound, rigidity - Extremities Exam Extremities exam: Present: normal inspection, full ROM. Absent: tenderness, pedal edema - Expanded Lower Extremity Exam Neurovascular/Tendon exam: Absent: motor deficit, sensory deficit, tendon deficit Gait: not tested/not observed - Back Exam Back exam: Present: normal inspection, full ROM. Absent: tenderness - Neurological Exam Neurological exam: Present: alert, oriented X3. Absent: motor sensory deficit - Psychiatric Psychiatric exam: Present: normal affect, normal mood - Skin Skin exam: Present: warm, dry, intact, normal color Course - Reevaluation(s) Reevaluation #1: 77-year-old male whose had dizziness near syncope several times. Patient will be admitted for further evaluation and treatment. Time: 17:01 - Consultations Consultation #1: Discussed with Dr. Stanley, admit. Time: 17:01 Vital Signs Temperature 97.9 F 08/30/17 12:58 Pulse Rate 66 08/30/17 12:58 Respiratory Rate 18 08/30/17 12:58 Blood Pressure 141/72 08/30/17 12:58 O2 Sat by Pulse Oximetry 95 08/30/17 12:58 Temperature 97.9 F 08/30/17 12:58 Pulse Rate 71 08/30/17 16:04 Respiratory Rate 20 08/30/17 16:04 Blood Pressure 134/100 08/30/17 16:04 O2 Sat by Pulse Oximetry 97 08/30/17 16:04 Oxygen Delivery Oxygen Delivery Room Air Dizziness - Lab Data Result diagrams: 08/30/17 14:02 08/30/17 14:02 Lab Results 08/30/17 08/30/17 08/30/17 Range/Units 14:02 14:02 14:02 WBC 8.3 (4.3-11.1) K/mcL RBC 4.17 L (4.19-5.50) M/mcL Hgb 12.4 L (12.9-16.9) g/dL Hct 38.2 (37.5-50.1) % MCV 91.6 (83.0-100.0) fL MCH 29.7 (28.0-33.3) pg MCHC 32.5 (31.6-35.5) g/dL RDW 14.6 H (11.5-14.5) % Plt Count 142 (140-400) K/mcL MPV 12.3 (9.4-12.4) fL Immature Gran % 0.6 (0-4) % Seg Neutrophils % 54.6 % Lymphocytes % 20.4 % Monocytes % 7.7 % Eosinophils % 16.0 % Basophils % 0.7 % Neutrophils # 4.6 (1.6-8.9) K/mcL Lymphocytes # 1.7 (0.6-4.6) K/mcL Monocytes # 0.6 (0.0-1.3) K/mcL Eosinophils # 1.3 H (0.0-0.6) K/mcL Basophils # 0.1 (0.0-0.2) K/mcL PT 27.3 H (9.4-12.1) Seconds INR 2.5 Sodium 138 (136-145) mEq/L Potassium 4.3 (3.5-5.1) mEq/L Chloride 102 (98-107) mEq/L Carbon Dioxide 28 (23-29) mEq/L BUN 22 (8-23) mg/dL Creatinine 1.09 (0.70-1.30) mg/dL Est GFR ( Amer) > 60 (> 60) Est GFR (Non-Af Amer) > 60 (> 60) BUN/Creatinine Ratio 20 (6-26) Glucose 137 H (70-105) mg/dL Calculated Osmolality 291 (280-300) Calcium 9.0 (8.6-10.3) mg/dL Troponin I < 0.03 (< 0.04) ng/mL - EKG Data EKG attestation: Yes I reviewed and interpreted this EKG. EKG shows normal: sinus rhythm Rate: normal Rhythm: NSR [place]/QRS: normal, RBBB When compared to previous EKG there are: no significant changes (04/30/2017) Interpretation: no acute changes NIH Stroke Scale - Level of Consciousness LOC: Alert - LOC Questions LOC Questions: Answers both correctly - LOC Commands LOC Commands: Performs both correctly - Best Gaze Best Gaze: Normal - Visual Visual: No visual loss - Facial Palsy Facial Palsy: Normal - Motor Arms Motor Arm-Left: No drift for 10 seconds Motor Arm-Right: No drift for 10 seconds - Motor Legs Motor Leg-Left: No drift for 5 seconds Motor Leg-Right: No drift for 5 seconds - Limb Ataxia Limb Ataxia: Normal, No Ataxia - Sensory Sensory: Normal - Best Language Best Language: No aphasia - Dysarthria Dysarthria: Normal - Extinction and Inattention Extinction and Inattention: Normal - NIHSS Total Score NIHSS Total Score: 0
[2017-08-30 15:23] LABS: BUN/Creatinine Ratio 20 (6-26); Blood Urea Nitrogen 22 mg/dL (8-23); Carbon Dioxide 28 mEq/L (23-29); Chloride 102 mEq/L (98-107); Glucose 137 mg/dL (70-105); Osmolality,Calculated 291 (280-300); Potassium 4.3 mEq/L (3.5-5.1); Sodium 138 mEq/L (136-145); eGFR For African Americans > 60 (> 60); eGFR For Non-African Americans > 60 (> 60)
--- NOTE | 2017-08-30 17:18 | Electrocardiograph Report ---
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
[2017-08-30] MEDS ORDERED: Naloxone 0.4 MG/ML INJ IVP PRN (18:13)
[2017-08-30] MEDS ORDERED: *HR* Warfarin 7.5 MG TABLET PO SCH (18:15)
--- NOTE | 2017-08-30 18:30 | Internal Med History&Physical ---
Date of Encounter: 08/30/17 Time of Encounter: 18:28 Internal Medicine - H&P: HPI Chief complaint: near syncope Admitted From: Emergency Dept Plans for Post Hospital Care: Home History of present illness: Mr. Ocampo is a 77 year old male who is a background history of for diabetes , hypertension, dyslipidemia, coronary artery disease,. Patient was complaining of ongoing dizziness. In last 24 hours patient's dizziness has progressively worsened. Couple of times patient feels that he is going to pass out. At one time patient was having near syncope. Patient was really concerned about all this symptoms. This was the reason he decided to come to emergency room for further evaluation. Patient denies complaining of chest pain, nausea, vomiting, abdominal pain and diarrhea. Workup in the emergency room: Patient was evaluated in the emergency room. Baseline labs were drawn. CT scan of the head was negative for any Intracranial event. Reason for admission: Near syncope for evaluation. Family history: Noncontributory Past Med Surg Social Fam HX - Past Medical History Medical history: CHF, DVT, diabetes, hyperlipidemia, hypertension, kidney stones Psychiatric history: no psych history - Past Surgical History Surgical History: appendectomy - Social History Smoking Status: Former smoker Smokeless Tobacco Status: No Alcohol use: none Drug use: none - Family History Mother Living Status: Hx Family Cancer: Yes (Ovarian) Father Living Status: Hx Family Respiratory Disorders: Yes (Black lung, TB) Internal Medicine - H&P: Meds Aspirin Enteric Coated [Aspirin EC] 81 mg PO DAILY 11/25/16 [History] BuPROPion SR (12 HR) [Wellbutrin SR] 150 mg PO DAILY 11/25/16 [History] Calcium Carbonate/Vitamin D3 [Calcium 500-Vit D3 200 Tablet] 1 each PO BID 11/25 [History] Docusate [Colace] 100 mg PO BID 11/25/16 [History] Losartan Potassium [Cozaar] 100 mg PO DAILY 11/25/16 [History] Metoprolol XL (24 HR) Succ [Toprol Xl] 25 mg PO DAILY 11/25/16 [History] Multivit-Min/FA/Lycopen/Lutein [Centrum Silver Tablet] 1 each PO DAILY 11/25/16 [History] Omeprazole [PriLOSEC] 20 mg PO DAILY PRN 11/25/16 [History] Simvastatin [Zocor] 20 mg PO HS 11/25/16 [History] Trospium Chloride 20 mg PO HS 11/25/16 [History] Warfarin [Coumadin] 7.5 mg PO SUMOWETHSA 11/25/16 [History] hydroCHLOROthiazide [Hydrochlorothiazide] 25 mg PO DAILY 11/25/16 [History] Acetaminophen [Tylenol] 650 mg PO Q6HR PRN tab 11/26/16 [Rx] Amlodipine Besylate 2.5 mg PO DAILY 08/30/17 [History] Metformin HCl [Metformin HCl ER] 1,000 mg PO QAM 08/30/17 [History] Warfarin Sodium [Warfarin Sodium] 5 mg PO TUFR 08/30/17 [History] 3 Allergy/AdvReac Type Severity Reaction Status Date / Time No Known Allergies Allergy Verified 04/30/17 16:37 All Systems PM: A 10-system review of systems was performed and is negative for pertinent findings except as documented above in the HPI. - Constitutional Constitutional: anorexia, lethargy, malaise, weakness - EENT Eyes: no change in vision, no discharge, no pain, no photophobia Ears: no ear discharge, no ear pain, no tinnitus Nose, mouth and throat: no dysphagia, no nasal discharge, no neck pain, no sore throat - Cardiovascular Cardiovascular ROS IM: no chest pain, no diaphoresis, no dyspnea, no lightheadedness, no palpitations, no syncope - Respiratory Respiratory: no cough, no dyspnea, no wheezing, no excessive phlegm production - Gastrointestinal Gastrointestinal: no abdominal pain, no diarrhea, no hematemesis, no hematochezia, no melena, no nausea, no vomiting - Musculoskeletal Musculoskeletal ROS IM: no numbness, no tingling - Integumentary Integumentary IM: no rash, no unusual bruising - Neurological Neurological ROS: dizziness, restless legs, vertigo, weakness, no confusion, no convulsions, no focal weakness, no numbness, no tingling, no tremor(s) - Hematologic/Lymphatic Hematologic/Lymphatic: no easy bruising - Constitutional Vitals: Temp Pulse Resp BP Pulse Ox 97.9 F 71 20 149/101 97 08/30/17 12:58 08/30/17 16:04 08/30/17 17:37 08/30/17 17:37 08/30/17 16:04 General appearance: Present: A&O X 3, pleasant, no acute distress, answers questions appropriately - Head Head exam: Present: atraumatic, normocephalic - Eye Eye exam: Present: PERRL, conjuntiva pink, sclera anicteric Pupils: Present: PERRL - Neck Neck exam general surgery: Present: supple, trachea midline. Absent: lymphadenopathy - Respiratory Respiratory exam: Present: CTAB. Absent: accessory muscle use, rales, rhonchi, wheezes - Cardiovascular Cardiovascular exam: Present: RRR, +S1, +S2. Absent: diastolic murmur, gallop, rubs, systolic murmur - GI/Abdominal GI/Abdominal exam: Present: normal bowel sounds, soft, no peritoneal signs. Absent: distended, tenderness - Extremities Exam Extremities exam: Present: warm, radial pulses palpable and symmetrical. Absent : calf tenderness, cyanotic, pedal edema - Neurological Exam Neurological exam: Present: CN II-XII intact, oriented X3, no focal deficits. Absent: pronater drift, facial droop, speech deficit - Skin Skin exam: Present: dry, intact Internal Med - H&P Results - Labs CBC & Chem 7: 08/30/17 14:02 08/30/17 14:02 - Assessment and plan (1) Near syncope Current Visit: Yes Status: Acute Assessment and plan: Patient is presented with a near syncopal episode. Plan: Admit as observation. Orthostatic vital signs. Resume home medication. Cycle troponin. EKG. Echocardiogram. Carotid Doppler. CT head: Negative for any acute intracranial event. I examined this patient in the emergency department room #33. Plan of care extent to the patient. He verbalized understanding. (2) Diabetes Current Visit: Yes Status: Chronic Assessment and plan: Patient is known to have a diabetes mellitus. Last hemoglobin A1c: 6.6:05/2017 Hold metformin. Close monitoring of the blood glucose. 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 Lipid panel tomorrow morning. Qualifiers: Hyperlipidemia type: unspecified Qualified Code(s): E78.5 - Hyperlipidemia , unspecified (4) HTN (hypertension) Current Visit: Yes Status: Chronic Assessment and plan: Patient is presently on more than 2 antihypertensive medications. We will closely monitor patient's blood pressure during hospitalization. Qualifiers: Hypertension type: essential hypertension Qualified Code(s): I10 - Essential (primary) hypertension (5) VTE (venous thromboembolism) Current Visit: No Status: Chronic Assessment and plan: Previous history of venous thromboembolism. The we need further records from the previous facility/primary care (6) DVT prophylaxis Current Visit: Yes Status: Acute Assessment and plan: Coumadin Rectal decision making: This patient has a moderate to severe risk of worsening in spite of being on appropriate medication due to the underlying complex comorbid condition. - Time Spent With Patient Total time spent is greater than 50% in coordination of care (as documented) at patient's floor/unit and/or counseling patient:
[2017-08-30] MEDS ORDERED: Perflutren Lipid Microsphere 1.3 ML in 0.9 % Sodium Chloride 8.7 ML IVP ONE (19:48)
[2017-08-30] MEDS ORDERED: NON-FORMULARY MEDICATION 1 EACH EACH (Calcium Carbonate/Vitamin D3 [Calcium 500-Vit D3 200 PO SCH (21:00)
[2017-08-31 02:16] LABS: Basophils % 0.5 %; Eosinophils # 1.4 K/mcL (0.0-0.6); Eosinophils % 15.8 %; Hemoglobin 12.3 g/dL (12.9-16.9); Immature Granulocytes % 0.6 % (0-4); Lymphocytes # 1.9 K/mcL (0.6-4.6); Lymphocytes % 21.6 %; Mean Corpuscular HGB Conc 34.2 g/dL (31.6-35.5); Mean Corpuscular Hemoglobin 31.1 pg (28.0-33.3); Mean Corpuscular Volume 90.9 fL (83.0-100.0); Monocytes # 0.7 K/mcL (0.0-1.3); Monocytes % 7.8 %; Neutrophils # 4.7 K/mcL (1.6-8.9); Platelet Count 120 K/mcL (140-400); Red Blood Count 3.96 M/mcL (4.19-5.50); Red Cell Distribution Width 14.3 % (11.5-14.5); Segmented Neutrophils % 53.7 %
[2017-08-31 02:21] LABS: INR 2.4; Prothrombin Time 26.5 Seconds (9.4-12.1)
[2017-08-31 02:26] LABS: Activated Partial Thrombo Time 43.7 Seconds (26.0-36.0)
[2017-08-31 02:38] LABS: Alanine Aminotransferase 8 Units/L (7-52); Albumin 3.5 g/dL (3.5-5.7); Albumin/Globulin Ratio 1.3 (1.1-2.2); Alkaline Phosphatase 53 Units/L (34-104); Aspartate Amino Transferase 17 Units/L (13-39); BUN/Creatinine Ratio 19 (6-26); Bilirubin,Total 0.9 mg/dL (0.3-1.0); Blood Urea Nitrogen 21 mg/dL (8-23); Calcium 8.7 mg/dL (8.6-10.3); Carbon Dioxide 25 mEq/L (23-29); Chloride 103 mEq/L (98-107); Chol/HDL Ratio 4.3 (0-4.9); Cholesterol 107 mg/dL (< 200); Globulin 2.6 g/dL (2.4-3.5); Glucose 132 mg/dL (70-105); HDL Cholesterol 25 mg/dL (40-59); LDL Cholesterol,Calculated 46 mg/dL (0-99); Magnesium 1.9 mg/dL (1.6-2.6); Osmolality,Calculated 289 (280-300); Phosphorous 2.9 mg/dL (2.7-4.5); Potassium 4.1 mEq/L (3.5-5.1); Sodium 137 mEq/L (136-145); Total Protein 6.1 g/dL (6.4-8.9); Triglycerides 179 mg/dL (< 150); eGFR For African Americans > 60 (> 60); eGFR For Non-African Americans > 60 (> 60)
[2017-08-31] MEDS ORDERED: hydroCHLOROthiazide 25 MG TABLET PO SCH (09:00)
[2017-08-31] MEDS: Multivit/Ca/Min/Fe/FA 1 TAB TABLET PO SCH (09:28)
[2017-08-31] MEDS: amLODIPine 5 MG TABLET PO SCH (09:28)
[2017-08-31] MEDS: Metoprolol XL (24 HR) Succ 25 MG TAB.ER.24H PO SCH (09:29)
[2017-08-31] MEDS: BuPROPion SR (12 HR) 150 MG TABLET PO SCH (09:30)
[2017-08-31] MEDS: Cholecalciferol (D-3) 1,000 UNIT TABLET PO SCH (09:30)
[2017-08-31] MEDS: Aspirin Enteric Coated 81 MG Tablet PO SCH (09:30)
--- NOTE | 2017-08-31 11:30 | Internal Med Progress Note ---
Date of Encounter: 08/31/17 Time of Encounter: 11:30 - Assessment and plan (1) Near syncope Current Visit: Yes Status: Acute Assessment and plan: Patient presented with dzziness/ complains of room spinning around. CT head negative for any intracranial abnormality. Echo showed evidenc e fo cardiomyopathy. will start on meclizine. neuro recs appreciated. (2) DVT prophylaxis Current Visit: Yes Status: Acute Assessment and plan: Coumadin. (3) Diabetes Current Visit: Yes Status: Chronic Assessment and plan: Patient is known to have a diabetes mellitus. Last hemoglobin A1c: 6.6:05/2017 Hold metformin. Close monitoring of the blood glucose. Qualifiers: Diabetes mellitus type: type 2 Diabetes mellitus mcfp insulin use: with mcfp use Diabetes mellitus complication status: with unspecified complications Qualified Code(s): E11.8 - Type 2 diabetes mellitus with unspecified complications; Z79.4 - half-way (current) use of insulin (4) HLD (hyperlipidemia) Current Visit: Yes Status: Chronic Assessment and plan: Resume home medication. Qualifiers: Hyperlipidemia type: unspecified Qualified Code(s): E78.5 - Hyperlipidemia , unspecified (5) HTN (hypertension) Current Visit: Yes Status: Chronic Assessment and plan: Will discontinue hCTZ Qualifiers: Hypertension type: essential hypertension Qualified Code(s): I10 - Essential (primary) hypertension (6) VTE (venous thromboembolism) Current Visit: No Status: Chronic Assessment and plan: Previous history of venous thromboembolism. The we need further records from the previous facility/primary care (7) Atrial fibrillation Current Visit: Yes Status: Acute Assessment and plan: Continue coumadin and metoprolol Qualifiers: Qualified Code(s): I48.91 - Unspecified atrial fibrillation - Time Spent With Patient Total time spent is greater than 50% in coordination of care (as documented) at patient's floor/unit and/or counseling patient: - Subjective Interval history: Still complains of dizziness/ vertigo this am - Constitutional Vitals: Temp Pulse Resp BP Pulse Ox 97.8 F 63 18 134/78 94 08/31/17 10:44 08/31/17 10:44 08/31/17 10:44 08/31/17 10:44 08/31/17 10:44 General appearance: Present: A&O X 3, pleasant, no acute distress, answers questions appropriately - Head Head exam: Present: atraumatic, normocephalic - Eye Eye exam: Present: PERRL, conjuntiva pink, sclera anicteric Pupils: Present: PERRL - Neck Neck exam general surgery: Present: supple, trachea midline. Absent: lymphadenopathy - Respiratory Respiratory exam: Present: CTAB. Absent: accessory muscle use, rales, rhonchi, wheezes - Cardiovascular Cardiovascular exam: Present: RRR, +S1, +S2. Absent: diastolic murmur, gallop, rubs, systolic murmur - GI/Abdominal GI/Abdominal exam: Present: normal bowel sounds, soft, no peritoneal signs. Absent: distended, tenderness - Extremities Exam Extremities exam: Present: warm, radial pulses palpable and symmetrical. Absent : calf tenderness, cyanotic, pedal edema - Neurological Exam Neurological exam: Present: CN II-XII intact, oriented X3, no focal deficits. Absent: pronater drift, facial droop, speech deficit - Skin Skin exam: Present: dry, intact Internal Medicine: Result - Labs CBC & Chem 7: 08/31/17 01:48 08/31/17 01:48 Labs: Short CBC 08/31/17 Range/Units 01:48 WBC 8.7 (4.3-11.1) K/mcL Hgb 12.3 L (12.9-16.9) g/dL Hct 36.0 L (37.5-50.1) % Plt Count 120 L (140-400) K/mcL Neutrophils # 4.7 (1.6-8.9) K/mcL BMP 08/31/17 01:48 Sodium 137 Potassium 4.1 Chloride 103 Carbon Dioxide 25 BUN 21 Creatinine 1.09 Glucose 132 H Calcium 8.7 Cardiac Enzymes 08/30/17 08/31/17 08/31/17 Range/Units 19:44 01:48 07:57 Troponin I < 0.03 < 0.03 < 0.03 (< 0.04) ng/mL Liver Function 08/31/17 Range/Units 01:48 Total Bilirubin 0.9 (0.3-1.0) mg/dL AST 17 (13-39) Units/L ALT 8 (7-52) Units/L Alkaline Phosphatase 53 (34-104) Units/L Albumin 3.5 (3.5-5.7) g/dL - ABG Interpretation ABG results: PT/INR, D-dimer PT 26.5 Seconds (9.4-12.1) H 08/31/17 01:48 - Impressions Impressions Echocardiogram 08/30/17 18:16 Impressions: LVEF 45-50%. Low normal to mildly reduced LV systolic function. Atypical septal motion consistent with bundle branch block. Indeterminate diastolic function. Definity echo contrast was used. Normal right ventricular structure and function. Mild aortic regurgitation. Mild tricuspid regurgitation. Mild pulmonic regurgitation. No pulmonary hypertension. Left Ventricular Wall Motion: Rest Echo Findings The apex, apical inferior, mid inferior, basal inferior, apical anterior, mid anterior, basal anterior, apical septal, mid inferior septal, basal inferior septal, apical lateral, mid anterior lateral, basal anterior lateral, mid anterior septal, mid inferior lateral, basal anterior septal and basal inferior lateral barth were hypokinetic. Findings: Study Quality * Technically challenging due to body habitus. ECG Findings * Probable atrial fibrillation, BBB. Left Ventricle * Normal LV chamber size. * Indeterminate diastolic function. * Atypical septal motion consistent with bundle branch block. * Definity echo contrast was used. * LVEF 45-50%. Right Ventricle * Normal right ventricular structure and function. Left Atrium * Mildly dilated left atrium. Right Atrium * Normal right atrial size. Aortic Valve * Trileaflet aortic valve. * No aortic stenosis. * Mild aortic regurgitation. Mitral Valve * Normal mitral valve structure. * No mitral regurgitation. * No mitral stenosis. * Mild mitral annular calcification Tricuspid Valve * Tricuspid valve not well visualized. * Mild tricuspid regurgitation. * Estimated RA pressure is 3 mmHg. * Estimated RVSP is 25 mmHg. * No pulmonary hypertension. Pulmonic Valve * Pulmonic valve is not well visualized. * No pulmonic stenosis. * Mild pulmonic regurgitation. Pulmonary Artery * Pulmonary artery not well visualized. Aorta * Normally sized aortic root. Pericardium * There is no pericardial effusion present. Interatrial Septum * No evidence of PFO by color Doppler. IVC * Normal IVC dimensions and inspiratory collapse. Consult Discharge Plan - Plan Referrals: April Coburn DO [Primary Care Provider] -
[2017-08-31 13:09] LABS: Bilirubin,Urine Negative (Negative); Blood,Urine Small (Negative); Clarity,Urine Cloudy (Clear); Color,Urine Yellow (Yellow); Glucose,Urine (UA) Normal (Normal); Ketones,Urine Negative (Negative); Leukocyte Esterase,Urine Large (Negative); Nitrite,Urine Negative (Negative); Protein,Urine Negative (Neg-Trace); Specific Gravity,Urine 1.012 (1.010-1.025); Urobilinogen,Urine Normal (Normal)
[2017-08-31 13:11] LABS: Bacteria,Urine Moderate per hpf (None-Few); Hyaline Casts,Urine None Seen per lpf (None-Few); Squamous Epithelial Cell,Urine Moderate per lpf (None-Few); WBC,Urine TNTC per hpf (0-3)
--- NOTE | 2017-08-31 14:19 | Neurology - Consult Note ---
<Lazaro Woods - Last Filed: 08/31/17 14:11> Date of Encounter: 08/31/17 Time of Encounter: 14:12 Assessment and Plan (1) Dizziness Current Visit: Yes Status: Acute Patient describes a vertiginous-type dizziness. Patient has had no episodes since admission. Most likely peripheral etiology. Meclizine ordered if patient has another episode. 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 He describes the dizziness as a spinning sensation. Most of the episodes last only a few seconds, but he had an episode yesterday that lasted 5 to 10 minutes which caused him to present to the ER. Since he presented he had no other episodes. Quickly turning his head or rolling over in bed does not elicit the symptom. He does describe a separate sort of dizziness, a lightheadedness, when he sits up quickly. He denies any recent viral syndromes. He denies headache, weakness, and numbness. He does have a long history of ear problems, including frequent infections and vertigo, but the patient says the most recent symptoms do not seem similar. Past Med Surg Social Fam HX - Past Medical History Medical history: CHF, DVT, diabetes, hyperlipidemia, hypertension, kidney stones Psychiatric history: no psych history - Past Surgical History Surgical History: appendectomy - Social History Smoking Status: Former smoker Smokeless Tobacco Status: No Alcohol use: none Drug use: none - Family History Mother Living Status: Hx Family Cancer: Yes (Ovarian) Father Living Status: Hx Family Respiratory Disorders: Yes (Black lung, TB) Medications and Allergies Aspirin Enteric Coated [Aspirin EC] 81 mg PO DAILY 11/25/16 [History] BuPROPion SR (12 HR) [Wellbutrin SR] 150 mg PO DAILY 11/25/16 [History] Calcium Carbonate/Vitamin D3 [Calcium 500-Vit D3 200 Tablet] 1 each PO BID 11/25 [History] Docusate [Colace] 100 mg PO BID 11/25/16 [History] Losartan Potassium [Cozaar] 100 mg PO DAILY 11/25/16 [History] Metoprolol XL (24 HR) Succ [Toprol Xl] 25 mg PO DAILY 11/25/16 [History] Multivit-Min/FA/Lycopen/Lutein [Centrum Silver Tablet] 1 each PO DAILY 11/25/16 [History] Omeprazole [PriLOSEC] 20 mg PO DAILY PRN 11/25/16 [History] Simvastatin [Zocor] 20 mg PO HS 11/25/16 [History] Trospium Chloride 20 mg PO HS 11/25/16 [History] Warfarin [Coumadin] 7.5 mg PO SUMOWETHSA 11/25/16 [History] hydroCHLOROthiazide [Hydrochlorothiazide] 25 mg PO DAILY 11/25/16 [History] Acetaminophen [Tylenol] 650 mg PO Q6HR PRN tab 11/26/16 [Rx] Amlodipine Besylate 2.5 mg PO DAILY 08/30/17 [History] Metformin HCl [Metformin HCl ER] 1,000 mg PO QAM 08/30/17 [History] Warfarin Sodium [Warfarin Sodium] 5 mg PO TUFR 08/30/17 [History] 3 Allergy/AdvReac Type Severity Reaction Status Date / Time No Known Allergies Allergy Verified 04/30/17 16:37 All Systems: The remainder of the systems were reviewed and are negative Review of Systems: A [facility] review of systems was reviewed and was negative except as noted in the HPI. Physical Examination - Vital Signs Vital Signs: Initial Vital Signs Temp Pulse Resp BP Pulse Ox 97.9 F 66 18 141/72 95 08/30/17 12:58 08/30/17 12:58 08/30/17 12:58 08/30/17 12:58 08/30/17 12:58 - Exam Exam: CONSTITUTIONAL: Well-developed and well-nourished. Comfortable and in no acute distress. CARDIOVASCULAR: Regular rate and rhythm. +S1 and S2. CHEST: Normal work of breathing. NEURO: Mental Status: Alert and oriented x3. Follows commands and answers questions. Long-term memory intact. Cranial Nerves: PERRL. EOMI. Visual denise intact. Symmetrical facial strength. Facial sensation intact. No dysarthria. Hearing intact with hearing aids. Soft palate elevates symmetrically. SCM and trapezius without weakness. Tongue protrudes in midline. Motor: Left - 5/5 in upper and lower extremities. R - 5/5 in upper and lower extremities. Sensation intact. Cerebellar function intact to [id number]. Benwood-Hallpike maneuver negative. Results - Laboratory Findings CBC and BMP: 08/31/17 01:48 08/31/17 01:48 Abnormal lab findings: Abnormal lab results RBC 3.96 M/mcL (4.19-5.50) L 08/31/17 01:48 Hgb 12.3 g/dL (12.9-16.9) L 08/31/17 01:48 Hct 36.0 % (37.5-50.1) L 08/31/17 01:48 Plt Count 120 K/mcL (140-400) L 08/31/17 01:48 Eosinophils # 1.4 K/mcL (0.0-0.6) H 08/31/17 01:48 PT 26.5 Seconds (9.4-12.1) H 08/31/17 01:48 APTT 43.7 Seconds (26.0-36.0) H 08/31/17 01:48 Glucose 132 mg/dL (70-105) H 08/31/17 01:48 POC Glucose 186 mg/dL (70-99) H 08/31/17 11:47 Serum Total Protein 6.1 g/dL (6.4-8.9) L 08/31/17 01:48 Triglycerides 179 mg/dL (< 150) H 08/31/17 01:48 VLDL Cholesterol, Calc 36 mg/dL (< 31) H 08/31/17 01:48 HDL Cholesterol 25 mg/dL (40-59) L 08/31/17 01:48 Urine Clarity Cloudy (Clear) A 08/31/17 11:55 Urine Blood Small (Negative) H 08/31/17 11:55 Ur Leukocyte Esterase Large (Negative) H 08/31/17 11:55 Urine Microscopic RBC 5-15 per hpf (0-3) H 08/31/17 11:55 Urine Microscopic WBC TNTC per hpf (0-3) H 08/31/17 11:55 Ur Squamous Epith Cells Moderate per lpf (None-Few) H 08/31/17 11:55 Urine Bacteria Moderate per hpf (None-Few) H 08/31/17 11:55 Ur Culture Indicated? YES (NO) A 08/31/17 11:55 Consult Discharge Plan - Plan Referrals: David Harris [Partnered Physician] - 09/06/17 1:50 pm <Damon Nuñez - Last Filed: 08/31/17 16:56> Date of Encounter: 08/31/17 Time of Encounter: 16:29 Assessment and Plan (1) Dizziness Current Visit: Yes Status: Acute I suspect that we are likely dealing with benign positional vertigo. However I would like to rule out the possibility of a cerebellar infarct. I would therefore order an MRI scan of the brain with diffusion images. Continue meclizine as ordered. Further recommendations will be made pending the MRI results. History of Present Illness HPI: The chart was reviewed, the patient was seen and examined independently, along with Dr. Woods. I agree with his assessment as stated above. All Systems: The remainder of the systems were reviewed and are negative Review of Systems: The balance of the systems review is negative. Physical Examination - Vital Signs Vital Signs: Initial Vital Signs Temp Pulse Resp BP Pulse Ox 97.9 F 66 18 141/72 95 08/30/17 12:58 08/30/17 12:58 08/30/17 12:58 08/30/17 12:58 08/30/17 12:58 - Neurologic Motor examination - right side: 4/5: hip flexors, 5/5: deltoids, biceps, triceps , payment manager, tibialis Anterior, quadriceps, toe extension (EHL), plantarflexion Motor examination - left side: 4/5: hip flexors, 5/5: deltoids, biceps, triceps , payment manager, quadriceps, tibialis Anterior, toe extension (EHL), plantarflexion Detailed sensory examination: other (Decreased sensation to pinprick in the distal to proximal gradient. Proprioception is impaired as well.) Reflex and gait examination: other (Patient is unable to walk due to bad knees. He is able to stand and transfer.) Reflexes: Biceps: 0 (Symmetrically), Triceps: 0 (Symmetrically), Brachioradialis : 0 (Symmetrically), Patella: 0 (Symmetrically), Achilles: 0 (Symmetrically) Mental Status Examination: awake, alert, oriented to person, oriented to place, oriented to time, follows commands appropriately, answers questions appropriately, no agnosia, no aphasia, no aproxia, lucid Cranial nerve examination: PERRL, EOMI, visual denise intact, sensory to face intact, mastication intact, no facial asymmetry is present, no dysarthria Cranial Nerve Exam: hearing decreased: Left (Patient has bilateral hearing loss) Cerebellar examination: no dysmetria, no truncal ataxia Results - Laboratory Findings CBC and BMP: 08/31/17 01:48 08/31/17 01:48 Abnormal lab findings: Abnormal lab results RBC 3.96 M/mcL (4.19-5.50) L 08/31/17 01:48 Hgb 12.3 g/dL (12.9-16.9) L 08/31/17 01:48 Hct 36.0 % (37.5-50.1) L 08/31/17 01:48 Plt Count 120 K/mcL (140-400) L 08/31/17 01:48 Eosinophils # 1.4 K/mcL (0.0-0.6) H 08/31/17 01:48 PT 26.5 Seconds (9.4-12.1) H 08/31/17 01:48 APTT 43.7 Seconds (26.0-36.0) H 08/31/17 01:48 Glucose 132 mg/dL (70-105) H 08/31/17 01:48 POC Glucose 163 mg/dL (70-99) H 08/31/17 16:16 Serum Total Protein 6.1 g/dL (6.4-8.9) L 08/31/17 01:48 Triglycerides 179 mg/dL (< 150) H 08/31/17 01:48 VLDL Cholesterol, Calc 36 mg/dL (< 31) H 08/31/17 01:48 HDL Cholesterol 25 mg/dL (40-59) L 08/31/17 01:48 Urine Clarity Cloudy (Clear) A 08/31/17 11:55 Urine Blood Small (Negative) H 08/31/17 11:55 Ur Leukocyte Esterase Large (Negative) H 08/31/17 11:55 Urine Microscopic RBC 5-15 per hpf (0-3) H 08/31/17 11:55 Urine Microscopic WBC TNTC per hpf (0-3) H 08/31/17 11:55 Ur Squamous Epith Cells Moderate per lpf (None-Few) H 08/31/17 11:55 Urine Bacteria Moderate per hpf (None-Few) H 08/31/17 11:55 Ur Culture Indicated? YES (NO) A 08/31/17 11:55
[2017-08-31] MEDS ORDERED: Dextrose Gel 15 GM/37.5 ML TUBE PO PRN ×2 (15:22)
[2017-08-31] MEDS ORDERED: *HR* Dextrose 50 % in Water (Syg) 50 ML SYRINGE IVP PRN (15:22)
[2017-08-31] MEDS ORDERED: D5% in Water 1,000 ML IVC PRN (15:22)
[2017-08-31] MEDS: Insulin LISPRO 300 UNITS/3 ML VIAL SQ SCH (16:25)
--- NOTE | 2017-08-31 16:31 | Electrocardiograph Report ---
[address] [place], [place] [address] Test Date: 2017-08-31 Pat Name: Martin Ocampo Department: 115 Room: 3A Gender: M Severity Of Illness Coordinator: ROSSANA : 1940 Requested By: Oscar Swan Order Number: [id number] Reading MD: Gabbie Peters Measurements Intervals Raymond Rate: 64 P: DE: 0 QRS: -84 QRSD: 147 T: -14 QT: 406 QTc: 415 Interpretive Statements ATRIAL FIBRILLATION RIGHT BUNDLE BRANCH BLOCK INFERIOR MYOCARDIAL INFARCTION, PROBABLY OLD ANTEROLATERAL MYOCARDIAL INFARCTION, OF INDETERMINATE AGE Electronically Signed On 08-31-2017 16:29:55 EDT by Gabbie Peters
[2017-08-31] MEDS ORDERED: cefTRIAXone 1,000 MG in Water for inj. (sterile) 20 ML 10 ML IVP SCH (17:00)
[2017-08-31] MEDS ORDERED: *HR* Warfarin 5 MG TABLET PO SCH (18:00)
[2017-08-31] MEDS ORDERED: Insulin LISPRO 300 UNITS/3 ML VIAL SQ SCH (21:00)
[2017-09-01 05:29] LABS: Basophils % 0.4 %; Eosinophils # 1.3 K/mcL (0.0-0.6); Hematocrit 35.1 % (37.5-50.1); Hemoglobin 12.1 g/dL (12.9-16.9); Immature Granulocytes % 0.5 % (0-4); Lymphocytes # 1.9 K/mcL (0.6-4.6); Lymphocytes % 23.9 %; Mean Corpuscular HGB Conc 34.5 g/dL (31.6-35.5); Mean Corpuscular Hemoglobin 31.3 pg (28.0-33.3); Mean Corpuscular Volume 90.7 fL (83.0-100.0); Monocytes # 0.7 K/mcL (0.0-1.3); Monocytes % 8.4 %; Neutrophils # 4.1 K/mcL (1.6-8.9); Platelet Count 118 K/mcL (140-400); Red Blood Count 3.87 M/mcL (4.19-5.50); Red Cell Distribution Width 14.5 % (11.5-14.5); Segmented Neutrophils % 50.8 %
[2017-09-01 05:51] LABS: BUN/Creatinine Ratio 19 (6-26); Blood Urea Nitrogen 22 mg/dL (8-23); Calcium 8.7 mg/dL (8.6-10.3); Carbon Dioxide 27 mEq/L (23-29); Chloride 106 mEq/L (98-107); Glucose 131 mg/dL (70-105); Osmolality,Calculated 301 (280-300); Potassium 3.8 mEq/L (3.5-5.1); Sodium 143 mEq/L (136-145); eGFR For African Americans > 60 (> 60); eGFR For Non-African Americans > 60 (> 60)
--- NOTE | 2017-09-01 08:20 | Neurology Progress Note ---
Date of Encounter: 09/01/17 Time of Encounter: 08:19 Assessment and Plan (1) Dizziness Current Visit: Yes Status: Acute (2) Benign paroxysmal positional vertigo Current Visit: Yes Status: Acute This juncture I am unable to identify any central etiology to explain this gentleman's recent complaints. MRI scan of the brain does not reveal evidence of acute infarct. However does reveal chronic deep white matter ischemic change. Cortical atrophy is also present. I will simply advised to prophylactically treat her stroke risk factors. He may discharge him on meclizine 12.5 mg twice a day if necessary to help with his complaints of vertigo. Otherwise I will reevaluate him at your request. Qualifiers: Qualified Code(s): H81.10 - Benign paroxysmal vertigo, unspecified ear Subjective Interval history: The chart was reviewed, the patient was seen and examined. His night was uneventful. He denies any repeat episodes of dizziness. Denies any visual abnormalities or speech difficulty. The MRI scan of the brain does reveal chronic deep white matter ischemic change. However there was no evidence of an acute infarct. Cortical atrophy is also present. Objective - Constitutional Vitals: Temp Pulse Resp BP Pulse Ox 98.2 F 75 16 113/60 95 09/01/17 04:38 09/01/17 04:38 09/01/17 04:38 09/01/17 04:38 09/01/17 04:38 - Neurological Exam Motor examination - right side: 4/5: hip flexors, 5/5: deltoids, biceps, triceps , chief chemist, tibialis Anterior, quadriceps, toe extension (EHL), plantarflexion Motor examination - left side: 4/5: hip flexors, 5/5: deltoids, biceps, triceps , chief chemist, quadriceps, tibialis Anterior, toe extension (EHL), plantarflexion Sensation intact: Present: other (Decreased sensation to pinprick in the distal to proximal gradient. Proprioception is impaired as well.) Reflex and gait examination: other (Patient is unable to walk due to bad knees. He is able to stand and transfer.) Mental Status Examination: Present: awake, alert, oriented to person, oriented to place, oriented to time, follows commands appropriately, answers questions appropriately, no agnosia, no aphasia, no aproxia, lucid Cranial nerve examination: Present: PERRL, EOMI, visual denise intact, sensory to face intact, mastication intact, no facial asymmetry is present, no dysarthria Cranial Nerve Exam: hearing decreased: Left (Patient has bilateral hearing loss) Cerebellar examination: Present: no dysmetria, no truncal ataxia Results - Laboratory Findings CBC and BMP: 09/01/17 04:53 09/01/17 04:53 Abnormal lab findings: Abnormal lab results RBC 3.87 M/mcL (4.19-5.50) L 09/01/17 04:53 Hgb 12.1 g/dL (12.9-16.9) L 09/01/17 04:53 Hct 35.1 % (37.5-50.1) L 09/01/17 04:53 Plt Count 118 K/mcL (140-400) L 09/01/17 04:53 Eosinophils # 1.3 K/mcL (0.0-0.6) H 09/01/17 04:53 PT 26.5 Seconds (9.4-12.1) H 08/31/17 01:48 APTT 43.7 Seconds (26.0-36.0) H 08/31/17 01:48 Glucose 131 mg/dL (70-105) H 09/01/17 04:53 POC Glucose 138 mg/dL (70-99) H 08/31/17 21:13 Calculated Osmolality 301 (280-300) H 09/01/17 04:53 Serum Total Protein 6.1 g/dL (6.4-8.9) L 08/31/17 01:48 Triglycerides 179 mg/dL (< 150) H 08/31/17 01:48 VLDL Cholesterol, Calc 36 mg/dL (< 31) H 08/31/17 01:48 HDL Cholesterol 25 mg/dL (40-59) L 08/31/17 01:48 Urine Clarity Cloudy (Clear) A 08/31/17 11:55 Urine Blood Small (Negative) H 08/31/17 11:55 Ur Leukocyte Esterase Large (Negative) H 08/31/17 11:55 Urine Microscopic RBC 5-15 per hpf (0-3) H 08/31/17 11:55 Urine Microscopic WBC TNTC per hpf (0-3) H 08/31/17 11:55 Ur Squamous Epith Cells Moderate per lpf (None-Few) H 08/31/17 11:55 Urine Bacteria Moderate per hpf (None-Few) H 08/31/17 11:55 Ur Culture Indicated? YES (NO) A 08/31/17 11:55 Consult Discharge Plan - Plan Referrals: David Harris [Partnered Physician] - 09/06/17 1:50 pm
[2017-09-01] MEDS: Aspirin Enteric Coated 81 MG Tablet PO SCH (09:06)
[2017-09-01] MEDS: Multivit/Ca/Min/Fe/FA 1 TAB TABLET PO SCH (09:06)
[2017-09-01] MEDS: amLODIPine 5 MG TABLET PO SCH (09:06)
[2017-09-01] MEDS: Cholecalciferol (D-3) 1,000 UNIT TABLET PO SCH (09:06)
[2017-09-01] MEDS: Metoprolol XL (24 HR) Succ 25 MG TAB.ER.24H PO SCH (09:06)
[2017-09-01] MEDS: BuPROPion SR (12 HR) 150 MG TABLET PO SCH (09:06)
[2017-09-01] MEDS: Insulin LISPRO 300 UNITS/3 ML VIAL SQ SCH ×2 (09:06→12:56)
--- NOTE | 2017-09-01 11:34 | Discharge Summary ---
- NOTES TO OUTPATIENT PROVIDER Notes to Outpatient Provider: Follow up with PCP Orders not resulted at time of discharge: Pending orders 08/31/17 11:55 Culture,Urine [RM] Stat 09/02/17 04:00 Basic Metabolic Panel AM 0400 CBC [Complete Blood Count] [HEME] AM 0400 09/03/17 04:00 Basic Metabolic Panel AM 0400 CBC [Complete Blood Count] [HEME] AM 0400 09/04/17 04:00 Basic Metabolic Panel AM 0400 CBC [Complete Blood Count] [HEME] AM 04009/05/17 04:00 Basic Metabolic Panel AM 0400 CBC [Complete Blood Count] [HEME] AM 0400 09/06/17 04:00 Basic Metabolic Panel AM 0400 CBC [Complete Blood Count] [HEME] AM 0400 Date of Encounter: 09/01/17 Time of Encounter: 11:30 - Discharge Diagnosis (1) Near syncope Priority: Primary Status: Acute Assessment and Plan: 77 year old male with pmh of hypertension presenting with complaints of dizziness/ room spinning around sensation. CT head negative for any intracranial abnormality. Echo showed evidence for cardiomyopathy with comobined systolic and diastolic dysfunction. he is noted to be on multiple BP meds with amlodipine, losartan, metoprolol and HCTZ> His HCTZ has been held as polypharmacy/multiple hypertensives may be a cause of his dizziness. He has also been counseled to follow up with his PCP to see if his BP meds can be weaned down further.He was seen by neuro, an MRI was negative for any acute pathology. He was also started on meclizien PRN. He was also noted ot have a UTI for which he got ceftriaxone and was discharged on po ciprofloxacin (2) DVT prophylaxis Priority: Secondary Status: Acute Assessment and Plan: Coumadin. (3) Diabetes Priority: Secondary Status: Chronic Assessment and Plan: Patient is known to have a diabetes mellitus. Last hemoglobin A1c: 6.6:05/2017 Hold metformin. Close monitoring of the blood glucose. Qualifiers: Diabetes mellitus type: type 2 Diabetes mellitus senior living insulin use: with termite control service representative use Diabetes mellitus complication status: with unspecified complications Qualified Code(s): E11.8 - Type 2 diabetes mellitus with unspecified complications; Z79.4 - care home (current) use of insulin (4) HLD (hyperlipidemia) Priority: Secondary Status: Chronic Qualifiers: Hyperlipidemia type: unspecified Qualified Code(s): E78.5 - Hyperlipidemia , unspecified (5) HTN (hypertension) Priority: Secondary Status: Chronic Qualifiers: Hypertension type: essential hypertension Qualified Code(s): I10 - Essential (primary) hypertension (6) VTE (venous thromboembolism) Priority: Secondary Status: Chronic (7) Atrial fibrillation Priority: Secondary Status: Acute Qualifiers: Atrial fibrillation type: unspecified Qualified Code(s): I48.91 - Unspecified atrial fibrillation Hospital course: Mr. Ocampo is a 77 year old male - Time Spent with Patient Total time spent providing and/or coordinating discharge services: - Discharge Medications Prescriptions: Ciprofloxacin HCl [Cipro] 500 mg PO BID 3 Days #6 tablet Meclizine [Antivert] 12.5 mg PO TID PRN #90 tablet PRN Reason: Dizziness Home Medications: Aspirin Enteric Coated [Aspirin EC] 81 mg PO DAILY 11/25/16 [History] BuPROPion SR (12 HR) [Wellbutrin SR] 150 mg PO DAILY 11/25/16 [History] Calcium Carbonate/Vitamin D3 [Calcium 500-Vit D3 200 Tablet] 1 each PO BID 11/25 [History] Docusate [Colace] 100 mg PO BID 11/25/16 [History] Losartan Potassium [Cozaar] 100 mg PO DAILY 11/25/16 [History] Metoprolol XL (24 HR) Succ [Toprol Xl] 25 mg PO DAILY 11/25/16 [History] Multivit-Min/FA/Lycopen/Lutein [Centrum Silver Tablet] 1 each PO DAILY 11/25/16 [History] Omeprazole [PriLOSEC] 20 mg PO DAILY PRN 11/25/16 [History] Simvastatin [Zocor] 20 mg PO HS 11/25/16 [History] Trospium Chloride 20 mg PO HS 11/25/16 [History] Warfarin [Coumadin] 7.5 mg PO SUMOWETHSA 11/25/16 [History] Acetaminophen [Tylenol] 650 mg PO Q6HR PRN tab 11/26/16 [Rx] Amlodipine Besylate 2.5 mg PO DAILY 08/30/17 [History] Metformin HCl [Metformin HCl ER] 1,000 mg PO QAM 08/30/17 [History] Warfarin Sodium 5 mg PO TUFR 08/30/17 [History] Ciprofloxacin HCl [Cipro] 500 mg PO BID 3 Days #6 tablet 09/01/17 [Rx] Meclizine [Antivert] 12.5 mg PO TID PRN #90 tablet 09/01/17 [Rx] Allergies/Adverse Reactions: 3 Allergy/AdvReac Type Severity Reaction Status Date / Time No Known Allergies Allergy Verified 04/30/17 16:37 Date of admission: 08/30/17 17:18 Primary care physician: Yobany Larios Consults: 08/31/17 11:25 Consult to Neurology [CONS] Routine Consulting Provider: Neurology [facility] Reason for Consult: Vertigo Call Completed: Yes 08/31/17 11:28 Consult to Physical Therapy [CONS] Routine Comment: Evaluate, develop and implement POC Reason for Consult: vertigo, weakness Does patient have active BEDREST order?: No Is patient medically & hemodynamically stable?: Yes - Constitutional Vitals: Temp Pulse Resp BP Pulse Ox 98.2 F 75 16 108/72 95 09/01/17 04:38 09/01/17 04:38 09/01/17 04:38 09/01/17 09:04 09/01/17 04:38 General appearance: Present: A&O X 3, pleasant, no acute distress, answers questions appropriately - Head Head exam: Present: atraumatic, normocephalic - Eye Eye exam: Present: PERRL, conjuntiva pink, sclera anicteric Pupils: Present: PERRL - Neck Neck exam general surgery: Present: supple, trachea midline. Absent: lymphadenopathy - Respiratory Respiratory exam: Present: CTAB. Absent: accessory muscle use, rales, rhonchi, wheezes - Cardiovascular Cardiovascular exam: Present: RRR, +S1, +S2. Absent: diastolic murmur, gallop, rubs, systolic murmur - GI/Abdominal GI/Abdominal exam: Present: normal bowel sounds, soft, no peritoneal signs. Absent: distended, tenderness - Extremities Exam Extremities exam: Present: warm, radial pulses palpable and symmetrical. Absent : calf tenderness, cyanotic, pedal edema - Neurological Exam Neurological exam: Present: CN II-XII intact, oriented X3, no focal deficits. Absent: pronater drift, facial droop, speech deficit - Skin Skin exam: Present: dry, intact - Patient Status Disposition: Home, Self-Care Condition: Good - Discharge Instructions Instructions: Atrial Fibrillation (DC), Vertigo (DC) Follow Up With: David Harris [Partnered Physician] - 09/06/17 1:50 pm
--- NOTE | 2017-09-01 11:48 | Physician Discharge Referral ---
Home Health/Hosp Referral Info Transfer to: Home Health - Diagnosis (1) Near syncope Priority: Primary Status: Acute (2) DVT prophylaxis Status: Acute (3) Diabetes Status: Chronic (4) HLD (hyperlipidemia) Status: Chronic (5) HTN (hypertension) Status: Chronic (6) VTE (venous thromboembolism) Status: Chronic (7) Atrial fibrillation Status: Acute - Respiratory Orders Oxygen / L per min Smoking Cessation: Smoking cessation has been advised. For more information, call the [place] Tobacco Quit Line at 6-176-WUGM-NOW. - Diet/Nutrition Diet/Nutrition Orders: Cardiac - Activity Activity Orders: Ambulate - Services Needed Following services are medically necessary services: Nursing, Home Health Aide, Physical Therapy - Transfer Medications Prescriptions: Ciprofloxacin HCl [Cipro] 500 mg PO BID 3 Days #6 tablet Meclizine [Antivert] 12.5 mg PO TID PRN #90 tablet PRN Reason: Dizziness Home Medications: Aspirin Enteric Coated [Aspirin EC] 81 mg PO DAILY 11/25/16 [History] BuPROPion SR (12 HR) [Wellbutrin SR] 150 mg PO DAILY 11/25/16 [History] Calcium Carbonate/Vitamin D3 [Calcium 500-Vit D3 200 Tablet] 1 each PO BID 11/25 [History] Docusate [Colace] 100 mg PO BID 11/25/16 [History] Losartan Potassium [Cozaar] 100 mg PO DAILY 11/25/16 [History] Metoprolol XL (24 HR) Succ [Toprol Xl] 25 mg PO DAILY 11/25/16 [History] Multivit-Min/FA/Lycopen/Lutein [Centrum Silver Tablet] 1 each PO DAILY 11/25/16 [History] Omeprazole [PriLOSEC] 20 mg PO DAILY PRN 11/25/16 [History] Simvastatin [Zocor] 20 mg PO HS 11/25/16 [History] Trospium Chloride 20 mg PO HS 11/25/16 [History] Warfarin [Coumadin] 7.5 mg PO SUMOWETHSA 11/25/16 [History] Acetaminophen [Tylenol] 650 mg PO Q6HR PRN tab 11/26/16 [Rx] Amlodipine Besylate 2.5 mg PO DAILY 08/30/17 [History] Metformin HCl [Metformin HCl ER] 1,000 mg PO QAM 08/30/17 [History] Warfarin Sodium 5 mg PO TUFR 08/30/17 [History] Ciprofloxacin HCl [Cipro] 500 mg PO BID 3 Days #6 tablet 09/01/17 [Rx] Meclizine [Antivert] 12.5 mg PO TID PRN #90 tablet 09/01/17 [Rx] Allergies/Adverse Reactions: 3 Allergy/AdvReac Type Severity Reaction Status Date / Time No Known Allergies Allergy Verified 04/30/17 16:37 Certification: Further, I certify that my clinical findings support that this patient is homebound (i.e. absences from home require considerable and taxing effort and are for medical reasons or temple services or infrequently or short duration when for other reasons) because: Homebound Reason: Patient requires assistance of a person or device to safely leave home Attestation: My signature below is to certify that this patient is under my care and that I, or nurse practitioner, or a physician's special events assistant working with me, has a face-to -face encounter with this patient.
[2017-09-01 12:05] VITALS: BP 113/75
== END 2017-09-01 16:05 | disposition home health service (06) ==
LOC: EMEROO 12:56 → 3ANU 12:56
PROVIDERS: ADMIT Internal Medicine; ATTEND Hospitalist

== ENCOUNTER 2020-05-16 11:42 | Inpatient (IN) ==
[2020-05-16 12:37] LABS: Basophils % 0.2 %; Eosinophils % 0.2 %; Hematocrit 43.4 % (37.5-50.1); Hemoglobin 13.8 g/dL (12.9-16.9); Immature Granulocytes % 2.2 % (0-4); Lymphocytes # 1.4 K/mcL (0.6-4.6); Lymphocytes % 8.4 %; Mean Corpuscular HGB Conc 31.8 g/dL (31.6-35.5); Mean Corpuscular Hemoglobin 30.2 pg (28.0-33.3); Monocytes # 1.4 K/mcL (0.0-1.3); Monocytes % 8.5 %; Neutrophils # 13.4 K/mcL (1.6-8.9); Platelet Count 285 K/mcL (140-400); Red Blood Count 4.57 M/mcL (4.19-5.50); Red Cell Distribution Width 14.7 % (11.5-14.5); Segmented Neutrophils % 80.5 %; White Blood Count 16.6 K/mcL (4.3-11.1)
[2020-05-16 12:47] LABS: Prothrombin Time 44.4 Seconds (9.4-12.1)
[2020-05-16 12:57] LABS: Albumin 3.6 g/dL (3.5-5.7); Albumin/Globulin Ratio 1.3 (1.1-2.2); Bilirubin,Direct 0.5 mg/dL (0.0-0.2); Bilirubin,Indirect 1.1 mg/dL (0.0-1.0); Bilirubin,Total 1.6 mg/dL (0.3-1.0); Globulin 2.7 g/dL (2.4-3.5); Potassium 4.6 mEq/L (3.5-5.1); Total Protein 6.3 g/dL (6.4-8.9)
[2020-05-16] MEDS ORDERED: 0.9 % Sodium Chloride 500 ML IVC ONE (13:17)
[2020-05-16 14:13] LABS: Bilirubin,Urine Negative (Negative); Blood,Urine Negative (Negative); Clarity,Urine Clear (Clear); Color,Urine Yellow (Yellow); Glucose,Urine (UA) Normal (Normal); Ketones,Urine Negative (Negative); Leukocyte Esterase,Urine Negative (Negative); Nitrite,Urine Negative (Negative); Protein,Urine Trace mg/dL (Neg-Trace); Specific Gravity,Urine 1.025 (1.010-1.025)
[2020-05-16] MEDS ORDERED: Naloxone 0.4 MG/ML INJ IVP PRN (15:05)
[2020-05-16] MEDS ORDERED: Ondansetron 4 MG/2 ML VIAL IVP PRN (15:05)
[2020-05-16] MEDS ORDERED: Acetaminophen 325 MG TABLET PO PRN (15:05)
[2020-05-16] MEDS ORDERED: D5% in Water 1,000 ML IVC PRN (15:10)
[2020-05-16] MEDS ORDERED: *HR* Dextrose 50 % in Water (Vial) 50 ML VIAL IVP PRN (15:10)
[2020-05-16] MEDS ORDERED: Dextrose Gel 15 GM/37.5 ML TUBE PO PRN ×2 (15:10)
[2020-05-16] MEDS: Insulin LISPRO 300 UNITS/3 ML VIAL SUBQ SCH ×2 (19:52→19:57)
[2020-05-16] MEDS ORDERED: 0.9 % Sodium Chloride 1,000 ML IVC SCH (20:45)
[2020-05-17 01:17] LABS: Basophils % 0.2 %; Eosinophils # 0.1 K/mcL (0.0-0.6); Eosinophils % 0.9 %; Hematocrit 37.6 % (37.5-50.1); Hemoglobin 12.2 g/dL (12.9-16.9); Lymphocytes # 1.6 K/mcL (0.6-4.6); Lymphocytes % 13.5 %; Mean Corpuscular HGB Conc 32.4 g/dL (31.6-35.5); Mean Corpuscular Hemoglobin 30.6 pg (28.0-33.3); Mean Corpuscular Volume 94.2 fL (83.0-100.0); Mean Platelet Volume 12.4 fL (9.4-12.4); Monocytes % 8.7 %; Neutrophils # 8.9 K/mcL (1.6-8.9); Platelet Count 235 K/mcL (140-400); Red Blood Count 3.99 M/mcL (4.19-5.50); Red Cell Distribution Width 14.8 % (11.5-14.5); Segmented Neutrophils % 74.7 %; White Blood Count 11.9 K/mcL (4.3-11.1)
[2020-05-17 01:24] LABS: INR 4.5; Prothrombin Time 50.1 Seconds (9.4-12.1)
[2020-05-17 01:35] LABS: Albumin/Globulin Ratio 1.3 (1.1-2.2); Bilirubin,Direct 0.5 mg/dL (0.0-0.2); Bilirubin,Indirect 1.1 mg/dL (0.0-1.0); Bilirubin,Total 1.6 mg/dL (0.3-1.0); Calcium 8.3 mg/dL (8.6-10.3); Globulin 2.3 g/dL (2.4-3.5); Magnesium 1.9 mg/dL (1.6-2.6); Potassium 4.2 mEq/L (3.5-5.1); Total Protein 5.3 g/dL (6.4-8.9)
[2020-05-17 01:46] LABS: Thyroid Stimulating Hormone 1.642 mcIU/mL (0.340-5.600)
[2020-05-17] MEDS: Insulin LISPRO 300 UNITS/3 ML VIAL SUBQ SCH ×5 (08:02→20:46)
[2020-05-17 10:24] LABS: Estimated Average Glucose 157 mg/dl; Hemoglobin A1C 7.1 %
[2020-05-17] MEDS ORDERED: *HR* Phytonadione 5 MG TABLET PO ONE (12:28)
[2020-05-17] MEDS: Metoprolol XL (24 HR) Succ 50 MG TAB.ER.24H PO SCH (20:34)
[2020-05-17] MEDS: amLODIPine 5 MG TABLET PO SCH (22:55)
[2020-05-18 07:40] LABS: BUN/Creatinine Ratio 26 (6-26); Blood Urea Nitrogen 34 mg/dL (8-23); Calcium 8.3 mg/dL (8.6-10.3); Carbon Dioxide 29 mEq/L (23-29); Chloride 105 mEq/L (98-107); Glucose 133 mg/dL (70-105); Magnesium 1.9 mg/dL (1.6-2.6); Osmolality,Calculated 302 (280-300); Potassium 3.9 mEq/L (3.5-5.1); Sodium 141 mEq/L (136-145); eGFR For African Americans > 60 (> 60); eGFR For Non-African Americans 53 (> 60)
[2020-05-18 07:41] LABS: Basophils % 0.2 %; Eosinophils # 0.3 K/mcL (0.0-0.6); Eosinophils % 2.7 %; Hematocrit 39.4 % (37.5-50.1); Hemoglobin 12.7 g/dL (12.9-16.9); Immature Granulocytes % 1.7 % (0-4); Lymphocytes # 1.4 K/mcL (0.6-4.6); Lymphocytes % 14.7 %; Mean Corpuscular HGB Conc 32.2 g/dL (31.6-35.5); Mean Corpuscular Hemoglobin 30.8 pg (28.0-33.3); Mean Corpuscular Volume 95.6 fL (83.0-100.0); Mean Platelet Volume 12.4 fL (9.4-12.4); Monocytes % 10.3 %; Neutrophils # 6.6 K/mcL (1.6-8.9); Platelet Count 199 K/mcL (140-400); Red Blood Count 4.12 M/mcL (4.19-5.50); Red Cell Distribution Width 14.7 % (11.5-14.5); Segmented Neutrophils % 70.4 %; White Blood Count 9.4 K/mcL (4.3-11.1)
[2020-05-18 07:42] LABS: INR 2.1; Prothrombin Time 23.4 Seconds (9.4-12.1)
[2020-05-18] MEDS: Insulin LISPRO 300 UNITS/3 ML VIAL SUBQ SCH ×4 (08:00→21:17)
[2020-05-18] MEDS: Metoprolol XL (24 HR) Succ 50 MG TAB.ER.24H PO SCH (08:53)
[2020-05-18] MEDS: Cholecalciferol (D-3) 1,000 UNIT (25MCG) TABLET PO SCH (08:53)
[2020-05-18] MEDS: Ascorbic Acid 500 MG TABLET PO SCH (08:53)
[2020-05-18] MEDS: amLODIPine 5 MG TABLET PO SCH (08:53)
[2020-05-18] MEDS: Multivit/Ca/Min/Fe/FA 1 TAB TABLET PO SCH (08:53)
[2020-05-18] MEDS: Aspirin Enteric Coated 81 MG Tablet PO SCH (08:54)
[2020-05-18] MEDS: BuPROPion SR (12 HR) 150 MG TABLET PO SCH (08:54)
[2020-05-18] MEDS ORDERED: amLODIPine 5 MG TABLET PO SCH (09:00)
[2020-05-18] MEDS ORDERED: Warfarin perPT PO PRN (18:00)
[2020-05-18] MEDS ORDERED: *HR* Warfarin 5 MG TABLET PO ONE (18:00)
[2020-05-19] MEDS: Insulin LISPRO 300 UNITS/3 ML VIAL SUBQ SCH ×4 (07:36→21:25)
[2020-05-19] MEDS: Cholecalciferol (D-3) 1,000 UNIT (25MCG) TABLET PO SCH (07:36)
[2020-05-19] MEDS: amLODIPine 5 MG TABLET PO SCH (07:37)
[2020-05-19] MEDS: Aspirin Enteric Coated 81 MG Tablet PO SCH (07:37)
[2020-05-19] MEDS: BuPROPion SR (12 HR) 150 MG TABLET PO SCH (07:37)
[2020-05-19] MEDS: Multivit/Ca/Min/Fe/FA 1 TAB TABLET PO SCH (07:38)
[2020-05-19] MEDS: Ascorbic Acid 500 MG TABLET PO SCH (07:38)
[2020-05-19] MEDS: Metoprolol XL (24 HR) Succ 50 MG TAB.ER.24H PO SCH (07:39)
[2020-05-19 08:44] LABS: Hematocrit 40.6 % (37.5-50.1); Hemoglobin 13.1 g/dL (12.9-16.9); Mean Corpuscular HGB Conc 32.3 g/dL (31.6-35.5); Mean Corpuscular Volume 93.1 fL (83.0-100.0); Mean Platelet Volume 12.3 fL (9.4-12.4); Platelet Count 210 K/mcL (140-400); Red Blood Count 4.36 M/mcL (4.19-5.50); Red Cell Distribution Width 14.6 % (11.5-14.5); White Blood Count 10.3 K/mcL (4.3-11.1)
[2020-05-19 08:53] LABS: INR 1.4; Prothrombin Time 15.6 Seconds (9.4-12.1)
[2020-05-19 08:57] LABS: BUN/Creatinine Ratio 26 (6-26); Blood Urea Nitrogen 28 mg/dL (8-23); Calcium 8.7 mg/dL (8.6-10.3); Carbon Dioxide 26 mEq/L (23-29); Chloride 104 mEq/L (98-107); Glucose 151 mg/dL (70-105); Osmolality,Calculated 296 (280-300); Potassium 4.1 mEq/L (3.5-5.1); Sodium 139 mEq/L (136-145); eGFR For African Americans > 60 (> 60); eGFR For Non-African Americans > 60 (> 60)
[2020-05-19] MEDS ORDERED: *HR* Warfarin 5 MG TABLET PO ONE (18:00)
[2020-05-20 05:20] LABS: Hematocrit 39.8 % (37.5-50.1); Hemoglobin 12.9 g/dL (12.9-16.9); Mean Corpuscular HGB Conc 32.4 g/dL (31.6-35.5); Mean Corpuscular Hemoglobin 30.9 pg (28.0-33.3); Mean Corpuscular Volume 95.2 fL (83.0-100.0); Mean Platelet Volume 12.5 fL (9.4-12.4); Platelet Count 189 K/mcL (140-400); Red Blood Count 4.18 M/mcL (4.19-5.50); Red Cell Distribution Width 14.6 % (11.5-14.5); White Blood Count 9.9 K/mcL (4.3-11.1)
[2020-05-20 05:32] LABS: INR 1.5; Prothrombin Time 17.2 Seconds (9.4-12.1)
[2020-05-20 05:39] LABS: BUN/Creatinine Ratio 25 (6-26); Blood Urea Nitrogen 27 mg/dL (8-23); Calcium 8.8 mg/dL (8.6-10.3); Carbon Dioxide 26 mEq/L (23-29); Chloride 104 mEq/L (98-107); Glucose 121 mg/dL (70-105); Osmolality,Calculated 296 (280-300); Sodium 140 mEq/L (136-145); eGFR For African Americans > 60 (> 60); eGFR For Non-African Americans > 60 (> 60)
[2020-05-20] MEDS: Insulin LISPRO 300 UNITS/3 ML VIAL SUBQ SCH ×4 (07:48→21:54)
[2020-05-20] MEDS: Multivit/Ca/Min/Fe/FA 1 TAB TABLET PO SCH (08:35)
[2020-05-20] MEDS: Cholecalciferol (D-3) 1,000 UNIT (25MCG) TABLET PO SCH (08:35)
[2020-05-20] MEDS: Aspirin Enteric Coated 81 MG Tablet PO SCH (08:35)
[2020-05-20] MEDS: BuPROPion SR (12 HR) 150 MG TABLET PO SCH (08:35)
[2020-05-20] MEDS: Ascorbic Acid 500 MG TABLET PO SCH (08:37)
[2020-05-20] MEDS: Metoprolol XL (24 HR) Succ 50 MG TAB.ER.24H PO SCH (08:37)
[2020-05-20] MEDS: amLODIPine 5 MG TABLET PO SCH (08:39)
[2020-05-20] MEDS ORDERED: *HR* Warfarin 7.5 MG TABLET PO ONE (18:00)
[2020-05-21 06:37] LABS: Hematocrit 39.7 % (37.5-50.1); Hemoglobin 12.9 g/dL (12.9-16.9); Mean Corpuscular HGB Conc 32.5 g/dL (31.6-35.5); Mean Corpuscular Hemoglobin 31.1 pg (28.0-33.3); Mean Corpuscular Volume 95.7 fL (83.0-100.0); Mean Platelet Volume 12.6 fL (9.4-12.4); Platelet Count 189 K/mcL (140-400); Red Blood Count 4.15 M/mcL (4.19-5.50); Red Cell Distribution Width 14.7 % (11.5-14.5); White Blood Count 9.1 K/mcL (4.3-11.1)
[2020-05-21 06:38] LABS: INR 1.9; Prothrombin Time 21.2 Seconds (9.4-12.1)
[2020-05-21 07:00] LABS: BUN/Creatinine Ratio 21 (6-26); Blood Urea Nitrogen 23 mg/dL (8-23); Calcium 8.9 mg/dL (8.6-10.3); Carbon Dioxide 28 mEq/L (23-29); Chloride 104 mEq/L (98-107); Glucose 133 mg/dL (70-105); Osmolality,Calculated 300 (280-300); Potassium 3.9 mEq/L (3.5-5.1); Sodium 142 mEq/L (136-145); eGFR For African Americans > 60 (> 60); eGFR For Non-African Americans > 60 (> 60)
[2020-05-21] MEDS: BuPROPion SR (12 HR) 150 MG TABLET PO SCH (08:25)
[2020-05-21] MEDS: Insulin LISPRO 300 UNITS/3 ML VIAL SUBQ SCH ×2 (08:25→11:40)
[2020-05-21] MEDS: Cholecalciferol (D-3) 1,000 UNIT (25MCG) TABLET PO SCH (08:25)
[2020-05-21] MEDS: Metoprolol XL (24 HR) Succ 50 MG TAB.ER.24H PO SCH (08:26)
[2020-05-21] MEDS: Ascorbic Acid 500 MG TABLET PO SCH (08:26)
[2020-05-21] MEDS: amLODIPine 5 MG TABLET PO SCH (08:26)
[2020-05-21] MEDS: Aspirin Enteric Coated 81 MG Tablet PO SCH (08:26)
[2020-05-21] MEDS: Multivit/Ca/Min/Fe/FA 1 TAB TABLET PO SCH (08:26)
[2020-05-21 14:59] VITALS: BP 115/78
[2020-05-21] MEDS ORDERED: *HR* Warfarin 5 MG TABLET PO ONE (18:00)
== END 2020-05-21 17:30 | DRG 683 ==
LOC: EMEROOARM 11:42 → 3BNU 11:42 → SUATTDRO 16:11 → 3BNU 17:13 → SUATTDRO 05-17 16:25
PROVIDERS: ADMIT Pharmacist; ATTEND Family Medicine

== ENCOUNTER 2020-06-06 14:11 | Inpatient (IN) ==
[2020-06-06] MEDS ORDERED: *HR* HYDROcodone/Acet 5/325 mg TABLET PO PRN (17:43)
[2020-06-06] MEDS ORDERED: Naloxone 0.4 MG/ML INJ IVP PRN (17:43)
[2020-06-06] MEDS ORDERED: *HR* Dextrose 50 % in Water (Vial) 50 ML VIAL IVP PRN (17:46)
[2020-06-06] MEDS ORDERED: Dextrose Gel 15 GM/37.5 ML TUBE PO PRN ×2 (17:46)
[2020-06-06] MEDS ORDERED: D5% in Water 1,000 ML IVC PRN (17:46)
[2020-06-06] MEDS ORDERED: Metoclopramide 10 MG/2 ML VIAL IVP PRN (17:47)
[2020-06-06] MEDS ORDERED: Ringers Solution, Lactated 500 ML IVC SCH (18:00)
[2020-06-06] MEDS: Insulin LISPRO 300 UNITS/3 ML VIAL SUBQ SCH (19:56)
[2020-06-06] MEDS: Pantoprazole 40 MG VIAL IVP SCH (19:58)
[2020-06-07] MEDS: Insulin LISPRO 300 UNITS/3 ML VIAL SUBQ SCH ×5 (02:43→23:55)
[2020-06-07 05:49] LABS: INR 2.9; Prothrombin Time 32.8 Seconds (9.4-12.1)
[2020-06-07 05:51] LABS: Activated Partial Thrombo Time 39.9 Seconds (26.0-36.0)
[2020-06-07 05:55] LABS: Basophils % 0.3 %; Eosinophils # 0.5 K/mcL (0.0-0.6); Eosinophils % 7.7 %; Immature Granulocytes % 0.6 % (0-4); Lymphocytes # 1.3 K/mcL (0.6-4.6); Mean Corpuscular HGB Conc 31.4 g/dL (31.6-35.5); Mean Corpuscular Hemoglobin 31.2 pg (28.0-33.3); Mean Corpuscular Volume 99.2 fL (83.0-100.0); Mean Platelet Volume 12.1 fL (9.4-12.4); Monocytes # 0.7 K/mcL (0.0-1.3); Platelet Count 124 K/mcL (140-400); Red Blood Count 3.53 M/mcL (4.19-5.50); Segmented Neutrophils % 61.4 %; White Blood Count 6.5 K/mcL (4.3-11.1)
[2020-06-07 06:07] LABS: BUN/Creatinine Ratio 17 (6-26); Blood Urea Nitrogen 21 mg/dL (8-23); Calcium 8.1 mg/dL (8.6-10.3); Carbon Dioxide 28 mEq/L (23-29); Chloride 108 mEq/L (98-107); Glucose 98 mg/dL (70-105); Osmolality,Calculated 301 (280-300); Phosphorous 2.4 mg/dL (2.7-4.5); Potassium 3.9 mEq/L (3.5-5.1); Sodium 144 mEq/L (136-145); eGFR For African Americans > 60 (> 60); eGFR For Non-African Americans 55 (> 60)
[2020-06-07 06:09] LABS: Amylase 27 Units/L (29-103); Lipase 30 Units/L (11-82)
[2020-06-07] MEDS: amLODIPine 5 MG TABLET PO SCH ×2 (09:13→09:23)
[2020-06-07] MEDS: Metoprolol XL (24 HR) Succ 50 MG TAB.ER.24H PO SCH ×2 (09:13→09:23)
[2020-06-07] MEDS: Pantoprazole 40 MG VIAL IVP SCH (09:13)
[2020-06-07] MEDS: D5% in 0.9% NACL 1,000 ML IVC SCH ×2 (09:57→23:46)
[2020-06-08 06:06] LABS: INR 2.5; Prothrombin Time 28.7 Seconds (9.4-12.1)
[2020-06-08] MEDS: Insulin LISPRO 300 UNITS/3 ML VIAL SUBQ SCH ×4 (06:09→22:20)
[2020-06-08 06:26] LABS: Basophils % 0.3 %; Eosinophils # 0.6 K/mcL (0.0-0.6); Eosinophils % 8.7 %; Hematocrit 36.4 % (37.5-50.1); Hemoglobin 11.3 g/dL (12.9-16.9); Immature Granulocytes % 0.3 % (0-4); Lymphocytes # 1.1 K/mcL (0.6-4.6); Lymphocytes % 15.8 %; Mean Corpuscular Hemoglobin 30.7 pg (28.0-33.3); Mean Corpuscular Volume 98.9 fL (83.0-100.0); Mean Platelet Volume 12.1 fL (9.4-12.4); Monocytes # 0.6 K/mcL (0.0-1.3); Monocytes % 9.3 %; Neutrophils # 4.4 K/mcL (1.6-8.9); Platelet Count 127 K/mcL (140-400); Red Blood Count 3.68 M/mcL (4.19-5.50); Red Cell Distribution Width 17.2 % (11.5-14.5); Segmented Neutrophils % 65.6 %; White Blood Count 6.7 K/mcL (4.3-11.1)
[2020-06-08 06:31] LABS: BUN/Creatinine Ratio 16 (6-26); Blood Urea Nitrogen 18 mg/dL (8-23); Carbon Dioxide 25 mEq/L (23-29); Chloride 109 mEq/L (98-107); Glucose 155 mg/dL (70-105); Osmolality,Calculated 301 (280-300); Phosphorous 1.9 mg/dL (2.7-4.5); Potassium 3.5 mEq/L (3.5-5.1); Sodium 143 mEq/L (136-145); eGFR For African Americans > 60 (> 60); eGFR For Non-African Americans > 60 (> 60)
[2020-06-08] MEDS ORDERED: Lidocaine -MPF 2% 2 ML VIAL ONE (09:19)
[2020-06-08] MEDS ORDERED: *HR* Propofol 200 MG/20 ML VIAL IVP ONE (09:19)
[2020-06-08] MEDS: Metoprolol XL (24 HR) Succ 50 MG TAB.ER.24H PO SCH (11:52)
[2020-06-08] MEDS: Pantoprazole 40 MG VIAL IVP SCH (11:52)
[2020-06-08] MEDS: amLODIPine 5 MG TABLET PO SCH (11:52)
[2020-06-08] MEDS: BuPROPion SR (12 HR) 150 MG TABLET PO SCH (11:52)
[2020-06-08] MEDS: Warfarin perPT PO SCH (17:22)
[2020-06-08] MEDS ORDERED: *HR* Warfarin 5 MG TABLET PO ONE (18:00)
[2020-06-09 06:31] LABS: INR 2.7; Prothrombin Time 30.3 Seconds (9.4-12.1)
[2020-06-09] MEDS: Insulin LISPRO 300 UNITS/3 ML VIAL SUBQ SCH ×4 (08:21→21:38)
[2020-06-09] MEDS: BuPROPion SR (12 HR) 150 MG TABLET PO SCH (09:43)
[2020-06-09] MEDS: Pantoprazole 40 MG VIAL IVP SCH (09:43)
[2020-06-09] MEDS: Metoprolol XL (24 HR) Succ 50 MG TAB.ER.24H PO SCH (09:43)
[2020-06-09] MEDS: amLODIPine 5 MG TABLET PO SCH (09:43)
[2020-06-09] MEDS ORDERED: *HR* Warfarin 5 MG TABLET PO ONE (18:00)
[2020-06-09] MEDS: Warfarin perPT PO SCH (18:01)
[2020-06-10 04:54] LABS: Hematocrit 34.6 % (37.5-50.1); Hemoglobin 10.9 g/dL (12.9-16.9)
[2020-06-10 04:55] LABS: INR 3.4; Prothrombin Time 38.1 Seconds (9.4-12.1)
[2020-06-10 05:09] LABS: BUN/Creatinine Ratio 15 (6-26); Blood Urea Nitrogen 20 mg/dL (8-23); Calcium 7.9 mg/dL (8.6-10.3); Carbon Dioxide 27 mEq/L (23-29); Chloride 110 mEq/L (98-107); Glucose 98 mg/dL (70-105); Osmolality,Calculated 303 (280-300); Phosphorous 2.5 mg/dL (2.7-4.5); Potassium 3.5 mEq/L (3.5-5.1); Sodium 145 mEq/L (136-145); eGFR For African Americans > 60 (> 60); eGFR For Non-African Americans 51 (> 60)
[2020-06-10] MEDS: Insulin LISPRO 300 UNITS/3 ML VIAL SUBQ SCH ×3 (08:35→16:18)
[2020-06-10] MEDS: amLODIPine 5 MG TABLET PO SCH (08:35)
[2020-06-10] MEDS: Metoprolol XL (24 HR) Succ 50 MG TAB.ER.24H PO SCH (08:36)
[2020-06-10] MEDS: BuPROPion SR (12 HR) 150 MG TABLET PO SCH (08:36)
[2020-06-10 15:24] VITALS: BP 116/73
[2020-06-10 17:33] LABS: Influenza A PCR Negative (Negative); Influenza B PCR Negative (Negative); Resp. Syncytial Virus PCR Negative (Negative)
[2020-06-10] MEDS: Warfarin perPT PO SCH (17:33)
[2020-06-10 17:34] LABS: SARS-CoV-2 by PCR (In House) Negative (Negative)
== END 2020-06-10 18:55 | disposition other institution (70) | DRG 392 ==
LOC: 3ANU → SUATTDRO 17:25
PROVIDERS: ADMIT Internal Medicine; ATTEND Internal Medicine
PROC: ENDOEBX (2020-06-08 08:00)